=== PATIENT | male | born 1940 | race Caucasian/White ===

== ENCOUNTER 2018-04-18 12:44 | Observation (INO) ==
--- NOTE | 2018-04-18 13:13 | Emergency Department Note ---
Disposition Clinical Impression: Breakthrough seizure Pneumonia Qualifiers: Laterality: right Lung location: lower lobe of lung Disposition: Admitted As Inpatient Condition: Fair Altered Mental Status HPI - General Stated Complaint: Seizures,Dizziness,AMS Time Seen by Provider: 04/18/18 12:48 Source: patient, family Mode of arrival: private vehicle Limitations: altered mental status - History of Present Illness HPI Narrative: Dereck is a 78 YO M with a PMH significant for epilepsy (on dilantin, phenobarb ital, Keppra, followed by Dr. Bragg), HTN, CAD s/p stent and remote history of CVA who presents with altered mental status and confusion. History comes from Dereck and his , both of whom are rather poor historians. Dereck's last known normal baseline status was at 1100 when his went to bed. When she awoke at 0630 this morning she found Dereck in the kitchen staring in the distance having an apparent absence seizure. This behavior is consistent with previous absence seizures he has had in the past. She brought him to Dr. Bragg's office for further evaluation. While in transit and at the neurologist's office Dereck underwent 3-4 further seizure episodes. Following completion of these episodes Dereck entered a confused state where he was disoriented and unable to perform simple tasks such as tying his shoes. Dr. Bragg assesed Dereck and was concerned that his breakthrough seizures may be secondary to an underlying infectious process, and directed him to [facility] ED for further evaluation and treatment. Of note, 5 days prior to onset of his his symptoms Dereck fell when his knees buckled and "scraped his head", after which time he had a fairly constant headache. This headache persisted until this morning. His last seizure was approximately 1 month prior, at which time he was evaluated and found to have a low Dilantin level, which was adjusted accordingly. Dereck denies F/C/NS, N/V/D, CP/SOB/ABD pain. complaint: altered mental status, confusion Onset (ago): hour(s) Time: 06:30 Timing confirmed by: spouse Pain Severity: none Context: history of similar presentation, seizure disorder Associated symptoms: Reports: headaches. Denies: chest pain, cough, diaphoresis, fever - Related Data Home Medications Medication Instructions Recorded Confirmed Clopidogrel 10/15/16 Dilantin 10/15/16 Furosemide 10/15/16 LevETIRAcetam 10/15/16 Metoprolol Tartrate 10/15/16 Multivitamin with Iron 10/15/16 Xunvpsps-Fkpnojwxv-Jd Ear Soln 10/15/16 PHENobarbital 10/15/16 10/15/16 Tamsulosin HCl 10/15/16 Previous Rx's Medication Instructions Recorded Acetaminophen [Tylenol] 500 mg PO Q6HR PRN #20 tablet 10/15/16 Amoxicillin/Clavulanate [Augmentin] 875 mg PO BID #20 tablet 10/15/16 Ciprofloxacin/Dex *EAR* Susp 4 drop LEFT EAR BID #1 bottle 10/15/16 [Ciprodex *EAR* Susp] Fluticasone Propionate Nasal 2 spray NS DAILY #1 bottle 01/02/18 [Flonase] Loratadine [Claritin] 10 mg PO DAILY #14 tablet 01/02/18 Ciprofloxacin HCl [Cipro] 500 mg PO BID #20 tablet 01/15/18 Allergies Allergy/AdvReac Type Severity Reaction Status Date / Time No Known Allergies Allergy Verified 01/02/18 11:41 Constitutional: Denies: fever, chills, weakness Eyes: Denies: eye pain, vision change ENT ED: Denies: ear pain Cardiovascular: Denies: chest pain, palpitations Respiratory: Denies: cough, dyspnea, wheezes Gastrointestinal: Denies: abdominal pain, nausea, vomiting Genitourinary: Denies: urgency, dysuria Integumentary: Denies: rash, abrasion Neurological: Reports: headache, numbness (describes decreased sensation in bilateral toes for the last several months). Denies: weakness Psychiatric: Denies: anxiety Past Medical History - Past Medical History Medical history: Reports: hyperlipidemia, hypertension, myocardial infarction, seizures Psychiatric history: Reports: no psych history - Social History Smoking Status: Never smoker Smokeless Tobacco Status: No Alcohol use: Reports: none Drug use: Reports: none Physical Exam - General Limitations: altered mental status General appearance: alert, in no apparent distress - Head Head exam: normocephalic, other (healing superficial abrasion on forehead) - Eye Eye exam: Present: normal appearance, PERRL, EOMI. Absent: nystagmus - ENT ENT exam: normal exam, normal oropharynx, mucous membranes moist - Neck Neck exam: Present: normal inspection - Chest Chest inspection: Present: normal inspection, symmetric chest wall rise - Respiratory Respiratory exam: Present: normal lung sounds bilaterally. Absent: respiratory distress, accessory muscle use - Cardiovascular Cardiovascular exam: Present: regular rate. Absent: tachycardia, systolic murmur, rubs - Abdominal Exam Abdominal exam: Present: soft, Non-Tender. Absent: distention, guarding, rebound, hyperactive bowel sounds - Extremities Exam Extremities exam: Present: normal inspection, normal capillary refill, pedal edema. Absent: joint swelling - Neurological Exam Neurological exam: Present: alert. Absent: oriented X3 (Patient thinks it is the s, JFK is the president, and he is at a different hospital than [facility]. this is a departure from his baseline status. ) - Psychiatric Psychiatric exam: Present: normal affect, normal mood - Skin Skin exam: Present: warm, dry, intact Course Course Narrative: Will obtain anticonvulsant levels and initial laboratory studies to assess for infectious processes. Dereck is currently afebrile with stable vital signs. Dereck's states that Dr. Bragg was anticipating admission. Will contact him and discuss further management. NIHSS was performed as a precaution to rule out unrecognized focal neurologic deficit. Dereck had an NIH score of 2, with only positives being 2/2 disorientation, confusion. Low concern for new onset CVA at this time. - Reevaluation(s) Reevaluation #1: Workup reveals consolidation in the RLL on CXR, likely community acquired pneumonia. This is most likely the cause of Dereck's breakthrough seizures. Will start him on IV antibiotics and admit for inpatient monitoring and treatment. Vital Signs Temperature 98.0 F 04/18/18 12:46 Pulse Rate 64 04/18/18 12:46 Respiratory Rate 18 04/18/18 12:46 Blood Pressure 133/79 04/18/18 12:46 O2 Sat by Pulse Oximetry 97 04/18/18 12:46 Temperature 98.0 F 04/18/18 12:57 Pulse Rate 62 04/18/18 15:45 Respiratory Rate 18 04/18/18 15:45 Blood Pressure 135/83 04/18/18 15:45 O2 Sat by Pulse Oximetry 93 04/18/18 15:45 Oxygen Delivery Oxygen Delivery Room Air Altered Mental Status - Lab Data Result diagrams: 04/18/18 13:10 04/18/18 13:10 Lab Results 04/18/18 04/18/1818 Range/Units 13:10 13:10 13:51 WBC 7.3 (4.3-11.1) K/mcL RBC 4.73 (4.19-5.50) M/mcL Hgb 13.9 (12.9-16.9) g/dL Hct 40.5 (37.5-50.1) % MCV 85.6 (83.0-100.0) fL MCH 29.4 (28.0-33.3) pg MCHC 34.3 (31.6-35.5) g/dL RDW 13.0 (11.5-14.5) % Plt Count 199 (140-400) K/mcL MPV 10.3 (9.4-12.4) fL Immature Gran % 0.3 (0-4) % Seg Neutrophils % 54.2 % Lymphocytes % 23.4 % Monocytes % 16.9 % Eosinophils % 4.4 % Basophils % 0.8 % Neutrophils # 3.9 (1.6-8.9) K/mcL Lymphocytes # 1.7 (0.6-4.6) K/mcL Monocytes # 1.2 (0.0-1.3) K/mcL Eosinophils # 0.3 (0.0-0.6) K/mcL Basophils # 0.1 (0.0-0.2) K/mcL Sodium 141 (136-145) mEq/L Potassium 4.1 (3.5-5.1) mEq/L Chloride 103 (98-107) mEq/L Carbon Dioxide 30 H (23-29) mEq/L BUN 11 (8-23) mg/dL Creatinine 0.73 (0.70-1.30) mg/dL Est GFR ( Amer) > 60 (> 60) Est GFR (Non-Af Amer) > 60 (> 60) BUN/Creatinine Ratio 15 (6-26) Glucose 86 (70-105) mg/dL Calculated Osmolality 291 (280-300) Calcium 9.0 (8.6-10.3) mg/dL Total Bilirubin 0.3 (0.3-1.0) mg/dL Direct Bilirubin 0.1 (0.0-0.2) mg/dL Indirect Bilirubin 0.2 (0.0-1.2) mg/dL AST 19 (13-39) Units/L ALT 17 (7-52) Units/L Alkaline Phosphatase 58 (34-104) Units/L Ammonia 63 H (16-53) mcmol/L Troponin I < 0.03 (< 0.04) ng/mL Serum Total Protein 7.5 (6.4-8.9) g/dL Albumin 4.2 (3.5-5.7) g/dL Globulin 3.3 (2.4-3.5) g/dL Albumin/Globulin Ratio 1.3 (1.1-2.2) TSH 2.448 (0.340-5.600) mcIU/mL Urine Color (Yellow) Urine Clarity (Clear) Urine pH (5.0-8.0) pH Units Ur Specific [place] (1.010-1.025) Urine Protein (Neg-Trace) mg/dL Urine Glucose (UA) (Normal) mg/dL Urine Ketones (Negative) mg/dL Urine Blood (Negative) Urine Nitrite (Negative) Urine Bilirubin (Negative) Urine Urobilinogen (Normal) mg/dL Ur Leukocyte Esterase (Negative) Ur Culture Indicated? (NO) Urine Opiates Screen (Hnzbmb=810) ng/mL Ur Barbiturates Screen (Cpxfab=882) ng/mL Phenytoin 17.9 (10.0-20.0) mcg/mL Ur Phencyclidine Scrn (Cutoff=25) ng/mL Ur Amphetamines Screen (Vfgzcb=2501) ng/mL Phenobarbital 24 (15-40) mcg/mL U Benzodiazepines Scrn (Arkqhi=483) ng/mL Urine Cocaine Screen (Cutoff= 300) ng/mL U Marijuana (THC) Screen (Cutoff = 50) ng/mL Ur Drug Screen Interp Ethyl Alcohol < 10 (Less than 10) mg/dL 04/18/18 04/18/18 Range/Units 14:02 14:02 WBC (4.3-11.1) K/mcL RBC (4.19-5.50) M/mcL Hgb (12.9-16.9) g/dL Hct (37.5-50.1) % MCV (83.0-100.0) fL MCH (28.0-33.3) pg MCHC (31.6-35.5) g/dL RDW (11.5-14.5) % Plt Count (140-400) K/mcL MPV (9.4-12.4) fL Immature Gran % (0-4) % Seg Neutrophils % % Lymphocytes % % Monocytes % % Eosinophils % % Basophils % % Neutrophils # (1.6-8.9) K/mcL Lymphocytes # (0.6-4.6) K/mcL Monocytes # (0.0-1.3) K/mcL Eosinophils # (0.0-0.6) K/mcL Basophils # (0.0-0.2) K/mcL Sodium (136-145) mEq/L Potassium (3.5-5.1) mEq/L Chloride (98-107) mEq/L Carbon Dioxide (23-29) mEq/L BUN (8-23) mg/dL Creatinine (0.70-1.30) mg/dL Est GFR ( Amer) (> 60) Est GFR (Non-Af Amer) (> 60) BUN/Creatinine Ratio (6-26) Glucose (70-105) mg/dL Calculated Osmolality (280-300) Calcium (8.6-10.3) mg/dL Total Bilirubin (0.3-1.0) mg/dL Direct Bilirubin (0.0-0.2) mg/dL Indirect Bilirubin (0.0-1.2) mg/dL AST (13-39) Units/L ALT (7-52) Units/L Alkaline Phosphatase (34-104) Units/L Ammonia (16-53) mcmol/L Troponin I (< 0.04) ng/mL Serum Total Protein (6.4-8.9) g/dL Albumin (3.5-5.7) g/dL Globulin (2.4-3.5) g/dL Albumin/Globulin Ratio (1.1-2.2) TSH (0.340-5.600) mcIU/mL Urine Color Yellow (Yellow) Urine Clarity Clear (Clear) Urine pH 7.5 (5.0-8.0) pH Units Ur Specific [place] < 1.005 L (1.010-1.025) Urine Protein Negative (Neg-Trace) mg/dL Urine Glucose (UA) Normal (Normal) mg/dL Urine Ketones Negative (Negative) mg/dL Urine Blood Negative (Negative) Urine Nitrite Negative (Negative) Urine Bilirubin Negative (Negative) Urine Urobilinogen Normal (Normal) mg/dL Ur Leukocyte Esterase Negative (Negative) Ur Culture Indicated? NO (NO) Urine Opiates Screen Negative (Slkoga=724) ng/mL Ur Barbiturates Screen Positive H (Oadkco=982) ng/mL Phenytoin (10.0-20.0) mcg/mL Ur Phencyclidine Scrn Negative (Cutoff=25) ng/mL Ur Amphetamines Screen Negative (Jclcjl=0538) ng/mL Phenobarbital (15-40) mcg/mL U Benzodiazepines Scrn Negative ([place]=314) ng/mL Urine Cocaine Screen Negative (Cutoff= 300) ng/mL U Marijuana (THC) Screen Negative (Cutoff = 50) ng/mL Ur Drug Screen Interp See Below Ethyl Alcohol (Less than 10) mg/dL - EKG Data EKG attestation: Yes I reviewed and interpreted this EKG. EKG shows normal: sinus rhythm Rate: normal Rhythm: NSR, PVC's [place]/QRS: normal Heart block present: 1st Degree (borderline MA interval, 204ms) Interpretation: no acute changes (mildly prolonged MA as compared to previous study. No findings concerning for significant block, arrhythmia or ischemia. ) TPA Checklist - LKW: 3-4.5 hrs Add. Warnings/Precautions Patient/family understanding: The patient/family members have been counseled and understood the risk, benefit, and alternatives of treatment.
--- NOTE | 2018-04-18 13:36 | Emergency Department Note ---
Disposition Clinical Impression: Breakthrough seizure, Pneumonia Disposition: Admitted As Inpatient General Adult [facility] Chief complaint: ED Altered Mental Status Stated complaint: Seizures,Dizziness,AMS Time Seen by Provider: 04/18/18 12:48 Source: patient, family Mode of arrival: private vehicle Limitations: altered mental status - History of Present Illness Pain Scale: 0 - Related Data Home Medications Medication Instructions Recorded Confirmed Clopidogrel 10/15/16 Dilantin 10/15/16 Furosemide 10/15/16 LevETIRAcetam 10/15/16 Metoprolol Tartrate 10/15/16 Multivitamin with Iron 10/15/16 Edjunyal-Jghoaxwqn-Aa Ear Soln 10/15/16 PHENobarbital 10/15/16 10/15/16 Tamsulosin HCl 10/15/16 Previous Rx's Medication Instructions Recorded Acetaminophen [Tylenol] 500 mg PO Q6HR PRN #20 tablet 10/15/16 Amoxicillin/Clavulanate [Augmentin] 875 mg PO BID #20 tablet 10/15/16 Ciprofloxacin/Dex *EAR* Susp 4 drop LEFT EAR BID #1 bottle 10/15/16 [Ciprodex *EAR* Susp] Fluticasone Propionate Nasal 2 spray NS DAILY #1 bottle 01/02/18 [Flonase] Loratadine [Claritin] 10 mg PO DAILY #14 tablet 01/02/18 Ciprofloxacin HCl [Cipro] 500 mg PO BID #20 tablet 01/15/18 Allergies Allergy/AdvReac Type Severity Reaction Status Date / Time No Known Allergies Allergy Verified 01/02/18 11:41 Constitutional: Denies: fever, chills, weakness Eyes: Denies: eye pain, vision change ENT ED: Denies: ear pain Cardiovascular: Denies: chest pain, palpitations Respiratory: Denies: cough, dyspnea, wheezes Gastrointestinal: Denies: abdominal pain, nausea, vomiting Genitourinary: Denies: urgency, dysuria Integumentary: Denies: rash, abrasion Neurological: Reports: headache, numbness (describes decreased sensation in bilateral toes for the last several months). Denies: weakness Psychiatric: Denies: anxiety Past Medical History - Past Medical History Medical history: Reports: hyperlipidemia, hypertension, myocardial infarction, s eizures Psychiatric history: Reports: no psych history - Social History Smoking Status: Never smoker Smokeless Tobacco Status: No Alcohol use: Reports: none Drug use: Reports: none Physical Exam - General Limitations: altered mental status General appearance: alert, in no apparent distress Course Vital Signs Temperature 98.0 F 04/18/18 12:46 Pulse Rate 64 04/18/18 12:46 Respiratory Rate 18 04/18/18 12:46 Blood Pressure 133/79 04/18/18 12:46 O2 Sat by Pulse Oximetry 97 04/18/18 12:46 Temperature 98.0 F 04/18/18 12:57 Pulse Rate 62 04/18/18 15:45 Respiratory Rate 18 04/18/18 15:45 Blood Pressure 135/83 04/18/18 15:45 O2 Sat by Pulse Oximetry 93 04/18/18 15:45 Oxygen Delivery Oxygen Delivery Room Air Medical Decision Making - Lab Data Result diagrams: 04/18/18 13:10 04/18/18 13:10 Lab Results 04/18/18 04/18/18 04/18/18 Range/Units 13:10 13:10 13:51 WBC 7.3 (4.3-11.1) K/mcL RBC 4.73 (4.19-5.50) M/mcL Hgb 13.9 (12.9-16.9) g/dL Hct 40.5 (37.5-50.1) % MCV 85.6 (83.0-100.0) fL MCH 29.4 (28.0-33.3) pg MCHC 34.3 (31.6-35.5) g/dL RDW 13.0 (11.5-14.5) % Plt Count 199 (140-400) K/mcL MPV 10.3 (9.4-12.4) fL Immature Gran % 0.3 (0-4) % Seg Neutrophils % 54.2 % Lymphocytes % 23.4 % Monocytes % 16.9 % Eosinophils % 4.4 % Basophils % 0.8 % Neutrophils # 3.9 (1.6-8.9) K/mcL Lymphocytes # 1.7 (0.6-4.6) K/mcL Monocytes # 1.2 (0.0-1.3) K/mcL Eosinophils # 0.3 (0.0-0.6) K/mcL Basophils # 0.1 (0.0-0.2) K/mcL Sodium 141 (136-145) mEq/L Potassium 4.1 (3.5-5.1) mEq/L Chloride 103 (98-107) mEq/L Carbon Dioxide 30 H (23-29) mEq/L BUN 11 (8-23) mg/dL Creatinine 0.73 (0.70-1.30) mg/dL Est GFR ( Amer) > 60 (> 60) Est GFR (Non-Af Amer) > 60 (> 60) BUN/Creatinine Ratio 15 (6-26) Glucose 86 (70-105) mg/dL Calculated Osmolality 291 (280-300) Calcium 9.0 (8.6-10.3) mg/dL Total Bilirubin 0.3 (0.3-1.0) mg/dL Direct Bilirubin 0.1 (0.0-0.2) mg/dL Indirect Bilirubin 0.2 (0.0-1.2) mg/dL AST 19 (13-39) Units/L ALT 17 (7-52) Units/L Alkaline Phosphatase 58 (34-104) Units/L Ammonia 63 H (16-53) mcmol/L Troponin I < 0.03 (< 0.04) ng/mL Serum Total Protein 7.5 (6.4-8.9) g/dL Albumin 4.2 (3.5-5.7) g/dL Globulin 3.3 (2.4-3.5) g/dL Albumin/Globulin Ratio 1.3 (1.1-2.2) TSH 2.448 (0.340-5.600) mcIU/mL Urine Color (Yellow) Urine Clarity (Clear) Urine pH (5.0-8.0) pH Units Ur Specific [place] (1.010-1.025) Urine Protein (Neg-Trace) mg/dL Urine Glucose (UA) (Normal) mg/dL Urine Ketones (Negative) mg/dL Urine Blood (Negative) Urine Nitrite (Negative) Urine Bilirubin (Negative) Urine Urobilinogen (Normal) mg/dL Ur Leukocyte Esterase (Negative) Ur Culture Indicated? (NO) Urine Opiates Screen (Nvhmdu=806) ng/mL Ur Barbiturates Screen (Sxlccy=152) ng/mL Phenytoin 17.9 (10.0-20.0) mcg/mL Ur Phencyclidine Scrn (Cutoff=25) ng/mL Ur Amphetamines Screen (Asizio=8727) ng/mL Phenobarbital 24 (15-40) mcg/mL U Benzodiazepines Scrn (Apzkol=681) ng/mL Urine Cocaine Screen (Cutoff= 300) ng/mL U Marijuana (THC) Screen (Cutoff = 50) ng/mL Ur Drug Screen Interp Ethyl Alcohol < 10 (Less than 10) mg/dL 04/18/18 04/18/18 Range/Units 14:02 14:02 WBC (4.3-11.1) K/mcL RBC (4.19-5.50) M/mcL Hgb (12.9-16.9) g/dL Hct (37.5-50.1) % MCV (83.0-100.0) fL MCH (28.0-33.3) pg MCHC (31.6-35.5) g/dL RDW (11.5-14.5) % Plt Count (140-400) K/mcL MPV (9.4-12.4) fL Immature Gran % (0-4) % Seg Neutrophils % % Lymphocytes % % Monocytes % % Eosinophils % % Basophils % % Neutrophils # (1.6-8.9) K/mcL Lymphocytes # (0.6-4.6) K/mcL Monocytes # (0.0-1.3) K/mcL Eosinophils # (0.0-0.6) K/mcL Basophils # (0.0-0.2) K/mcL Sodium (136-145) mEq/L Potassium (3.5-5.1) mEq/L Chloride (98-107) mEq/L Carbon Dioxide (23-29) mEq/L BUN (8-23) mg/dL Creatinine (0.70-1.30) mg/dL Est GFR ( Amer) (> 60) Est GFR (Non-Af Amer) (> 60) BUN/Creatinine Ratio (6-26) Glucose (70-105) mg/dL Calculated Osmolality (280-300) Calcium (8.6-10.3) mg/dL Total Bilirubin (0.3-1.0) mg/dL Direct Bilirubin (0.0-0.2) mg/dL Indirect Bilirubin (0.0-1.2) mg/dL AST (13-39) Units/L ALT (7-52) Units/L Alkaline Phosphatase (34-104) Units/L Ammonia (16-53) mcmol/L Troponin I (< 0.04) ng/mL Serum Total Protein (6.4-8.9) g/dL Albumin (3.5-5.7) g/dL Globulin (2.4-3.5) g/dL Albumin/Globulin Ratio (1.1-2.2) TSH (0.340-5.600) mcIU/mL Urine Color Yellow (Yellow) Urine Clarity Clear (Clear) Urine pH 7.5 (5.0-8.0) pH Units Ur Specific [place] < 1.005 L (1.010-1.025) Urine Protein Negative (Neg-Trace) mg/dL Urine Glucose (UA) Normal (Normal) mg/dL Urine Ketones Negative (Negative) mg/dL Urine Blood Negative (Negative) Urine Nitrite Negative (Negative) Urine Bilirubin Negative (Negative) Urine Urobilinogen Normal (Normal) mg/dL Ur Leukocyte Esterase Negative (Negative) Ur Culture Indicated? NO (NO) Urine Opiates Screen Negative (Xglkla=560) ng/mL Ur Barbiturates Screen Positive H (Gktffb=630) ng/mL Phenytoin (10.0-20.0) mcg/mL Ur Phencyclidine Scrn Negative (Cutoff=25) ng/mL Ur Amphetamines Screen Negative (Cylyoa=3215) ng/mL Phenobarbital (15-40) mcg/mL U Benzodiazepines Scrn Negative (Wwpstt=981) ng/mL Urine Cocaine Screen Negative (Cutoff= 300) ng/mL U Marijuana (THC) Screen Negative (Cutoff = 50) ng/mL Ur Drug Screen Interp See Below Ethyl Alcohol (Less than 10) mg/dL Attestation Statement - Attestation Attestation: I examined this patient and my medical decision-making was reviewed with the Resident Physician. I agree with the documented findings, disposition and treatment plan as described except to the extent set forth below. Patient presents to the ED with seizure activity. states he had an episode today where he was staring and not responding. This is consistent with his history of absance seizures. He also has a history of tonic clonic seizures. He is currently on Keppra, Dilantin, and phenobarbital. She took him to see Dr. Bragg. He had 2 more episodes in the waiting room. Dr. Bragg was concern for possible infectious processes send him to the ED. states he has been "sick." No vomiting or diarrhea. No cough. No congestion. Is a complaining of his feet hurting. She states is also been cold. On exam he is awake and alert. He is oriented to self. Thinks he is at [facility]. Moving all extremities symmetrically. Speech clear. Plan. Altered mental status workup. Head CT as he did have a fall 5 days ago and takes Plavix. Patient's workup is unremarkable. His antiepileptics a therapeutic. Head CT is unremarkable. He is admitted to medicine. X-ray showed a possible infiltrate, however he is not coughing. Has a normal white blood cell count. And is afebrile. Chest X-Ray 04/18/18 13:34 IMPRESSION: Right lower lobe atelectatic and/or consolidative changes. Cardiomegaly and increased congestion. D/ / 04/18/2018 13:51:20 Allison Eisenberg MD / earnold Interpreting Provider: Allison Eisenberg MD Head CT 04/18/18 13:34 IMPRESSION: No acute intracranial abnormality. Mild cerebral atrophy. D/ / Faisal Ruiz MD / Faisal Ruiz MD Interpreting Provider: Faisal Ruiz MD
--- NOTE | 2018-04-18 13:50 | Emergency Department Note ---
Disposition Clinical Impression: Breakthrough seizure Pneumonia Qualifiers: Laterality: right Lung location: lower lobe of lung Disposition: Admitted As Inpatient Condition: Fair Time of Disposition: 16:01 General Adult HPI - General Chief complaint: ED Altered Mental Status Stated complaint: Seizures,Dizziness,AMS Time Seen by Provider: 04/18/18 12:48 Source: patient, family Mode of arrival: private vehicle Limitations: altered mental status Nursing Notes Reviewed: Yes Vital Signs Reviewed: Yes - History of Present Illness HPI Narrative: I examined this patient and my medical decision-making was reviewed with the Resident Physician Rod. I agree with the documented history of present illness. Please see my note for physical exam, medical decision making, and disposition. ROS: Positive: Confusion, multiple absence seizure's. Also chills, increased sleepiness Negative: Measured fever, cough, shortness of breath, chest pain, palpitations, abdominal pain, diarrhea, constipation, dysuria, headache Pain Scale: 0 - Related Data Home Medications Medication Instructions Recorded Confirmed Clopidogrel 10/15/16 Dilantin 10/15/16 Furosemide 10/15/16 LevETIRAcetam 10/15/16 Metoprolol Tartrate 10/15/16 Multivitamin with Iron 10/15/16 Cinnubsd-Apalohybq-Dk Ear Soln 10/15/16 PHENobarbital 10/15/16 10/15/16 Tamsulosin HCl 10/15/16 Previous Rx's Medication Instructions Recorded Acetaminophen [Tylenol] 500 mg PO Q6HR PRN #20 tablet 10/15/16 Amoxicillin/Clavulanate [Augmentin] 875 mg PO BID #20 tablet 10/15/16 Ciprofloxacin/Dex *EAR* Susp 4 drop LEFT EAR BID #1 bottle 10/15/16 [Ciprodex *EAR* Susp] Fluticasone Propionate Nasal 2 spray NS DAILY #1 bottle 01/02/18 [Flonase] Loratadine [Claritin] 10 mg PO DAILY #14 tablet 01/02/18 Ciprofloxacin HCl [Cipro] 500 mg PO BID #20 tablet 01/15/18 Allergies Allergy/AdvReac Type Severity Reaction Status Date / Time No Known Allergies Allergy Verified 01/02/18 11:41 All systems ED: reviewed and negative except as stated. Review of Systems: As Per HPI Constitutional: Denies: fever, chills, weakness Eyes: Denies: eye pain, vision change ENT ED: Denies: ear pain Cardiovascular: Denies: chest pain, palpitations Respiratory: Denies: cough, dyspnea, wheezes Gastrointestinal: Denies: abdominal pain, nausea, vomiting Genitourinary: Denies: urgency, dysuria Integumentary: Denies: rash, abrasion Neurological: Reports: headache, numbness (describes decreased sensation in bilateral toes for the last several months). Denies: weakness Psychiatric: Denies: anxiety Past Medical History - Past Medical History Medical history: Reports: hyperlipidemia, hypertension, myocardial infarction, seizures Psychiatric history: Reports: no psych history - Social History Smoking Status: Never smoker Smokeless Tobacco Status: No Alcohol use: Reports: none Drug use: Reports: none Physical Exam Vital Signs Reviewed General: Patient is alert, oriented, and in no acute distress. Head: atraumatic, normocephalic Eye: normal appearance, PERRL, EOMI, no scleral icterus, no conjunctival injection ENT: mucous membranes moist, normal external ear exam Neck: normal inspection, trachea midline, full ROM Chest: normal inspection, symmetric chest rise Respiratory: Good respiratory effort. Bilateral breath sounds are clear without wheezing, crackles, or rhonchi. Cardiovascular: Regular rate and rhythm. No clicks, rubs, gallops, or murmors. Normal heart sounds. Abdomen: Bowel sounds present normoactive x-4 quadrants. Abdomen is soft, nondistended, and nontender. No guarding or rebound. Musculoskeletal: Spontaneously moving all extremities. Skin: warm, dry, intact. Neuro: GCS 15. Alert and oriented x3. Sensation light touch intact and equal bilateral upper and lower extremity his. Strength 5/5 and equal bilateral lower extremity is. No limb drift. No facial asymmetry or slurring of speech. Patient is answering all questions appropriately and briskly. Psych: Patient's affect is appropriate for situation. - General Limitations: altered mental status General appearance: alert, in no apparent distress Course Course Narrative: Patient presents with multiple absence seizures in the last 24 hours including at his neurologist's outpatient appointment today. His neurologist is concern ing for possible underlying infectious process. Patient's notes chills with no measured fever. Patient previously thought he was at the hospital and now believes he is at [facility]. Neurologically intact with exception confusion. EKG dated 04/18/2018 at 13:04 interpreted as sinus bradycardia with a rate of 59. Borderline first-degree AV block with ND 204, QRS 97, QTC 408. Nonspecific ST-T changes. Compared to previous EKG dated 06/20/2012 showing no acute ischemic changes or comparison. Serum hematology is unremarkable. Serum chemistries unremarkable. Urinalysis not concerning for UTI. Chest x-ray concerning for possible right lower lobe pneumonia. This to be community-acquired pneumonia given patient's presentation from home and lack of hospitalizations the last 90 days. We will begin azithromycin and Rocephin. 16:00 I discussed the patient with the admitting hospitalist, Dr. Nina, who agrees to accept the patient for continued evaluation monitoring. Chest X-Ray 04/18/18 13:34 IMPRESSION: Right lower lobe atelectatic and/or consolidative changes. Cardiomegaly and increased congestion. D/ / 04/18/2018 13:51:20 Allison Eisenberg MD / earnold Interpreting Provider: Allison Eisenberg MD Head CT 04/18/18 13:34 IMPRESSION: No acute intracranial abnormality. Mild cerebral atrophy. D/ / Faisal Ruiz MD / Faisal Ruiz MD Interpreting Provider: Faisal Ruiz MD Vital Signs Temperature 98.0 F 04/18/18 12:46 Pulse Rate 64 04/18/18 12:46 Respiratory Rate 18 04/18/18 12:46 Blood Pressure 133/79 04/18/18 12:46 O2 Sat by Pulse Oximetry 97 04/18/18 12:46 Temperature 98.0 F 04/18/18 12:57 Pulse Rate 62 04/18/18 15:45 Respiratory Rate 18 04/18/18 15:45 Blood Pressure 135/83 04/18/18 15:45 O2 Sat by Pulse Oximetry 93 04/18/18 15:45 Oxygen Delivery Oxygen Delivery Room Air Medical Decision Making - Lab Data Result diagrams: 04/18/18 13:10 04/18/18 13:10 Lab Results 11/28/18 11/28/18 11/28/18 Range/Units 13:10 13:10 13:51 WBC 7.3 (4.3-11.1) K/mcL RBC 4.73 (4.19-5.50) M/mcL Hgb 13.9 (12.9-16.9) g/dL Hct 40.5 (37.5-50.1) % MCV 85.6 (83.0-100.0) fL MCH 29.4 (28.0-33.3) pg MCHC 34.3 (31.6-35.5) g/dL RDW 13.0 (11.5-14.5) % Plt Count 199 (140-400) K/mcL MPV 10.3 (9.4-12.4) fL Immature Gran % 0.3 (0-4) % Seg Neutrophils % 54.2 % Lymphocytes % 23.4 % Monocytes % 16.9 % Eosinophils % 4.4 % Basophils % 0.8 % Neutrophils # 3.9 (1.6-8.9) K/mcL Lymphocytes # 1.7 (0.6-4.6) K/mcL Monocytes # 1.2 (0.0-1.3) K/mcL Eosinophils # 0.3 (0.0-0.6) K/mcL Basophils # 0.1 (0.0-0.2) K/mcL Sodium 141 (136-145) mEq/L Potassium 4.1 (3.5-5.1) mEq/L Chloride 103 (98-107) mEq/L Carbon Dioxide 30 H (23-29) mEq/L BUN 11 (8-23) mg/dL Creatinine 0.73 (0.70-1.30) mg/dL Est GFR ( Amer) > 60 (> 60) Est GFR (Non-Af Amer) > 60 (> 60) BUN/Creatinine Ratio 15 (6-26) Glucose 86 (70-105) mg/dL Calculated Osmolality 291 (280-300) Calcium 9.0 (8.6-10.3) mg/dL Total Bilirubin 0.3 (0.3-1.0) mg/dL Direct Bilirubin 0.1 (0.0-0.2) mg/dL Indirect Bilirubin 0.2 (0.0-1.2) mg/dL AST 19 (13-39) Units/L ALT 17 (7-52) Units/L Alkaline Phosphatase 58 (34-104) Units/L Ammonia 63 H (16-53) mcmol/L Troponin I < 0.03 (< 0.04) ng/mL Serum Total Protein 7.5 (6.4-8.9) g/dL Albumin 4.2 (3.5-5.7) g/dL Globulin 3.3 (2.4-3.5) g/dL Albumin/Globulin Ratio 1.3 (1.1-2.2) Urine Color (Yellow) Urine Clarity (Clear) Urine pH (5.0-8.0) pH Units Ur Specific [place] (1.010-1.025) Urine Protein (Neg-Trace) mg/dL Urine Glucose (UA) (Normal) mg/dL Urine Ketones (Negative) mg/dL Urine Blood (Negative) Urine Nitrite (Negative) Urine Bilirubin (Negative) Urine Urobilinogen (Normal) mg/dL Ur Leukocyte Esterase (Negative) Ur Culture Indicated? (NO) Urine Opiates Screen (Thoeoo=131) ng/mL Ur Barbiturates Screen (Epyfmp=162) ng/mL Phenytoin 17.9 (10.0-20.0) mcg/mL Ur Phencyclidine Scrn (Cutoff=25) ng/mL Ur Amphetamines Screen (Zkcpym=3166) ng/mL Phenobarbital 24 (15-40) mcg/mL U Benzodiazepines Scrn (Orszqy=615) ng/mL Urine Cocaine Screen (Cutoff= 300) ng/mL U Marijuana (THC) Screen (Cutoff = 50) ng/mL Ur Drug Screen Interp 04/18/18 04/18/18 Range/Units 14:02 14:02 WBC (4.3-11.1) K/mcL RBC (4.19-5.50) M/mcL Hgb (12.9-16.9) g/dL Hct (37.5-50.1) % MCV (83.0-100.0) fL MCH (28.0-33.3) pg MCHC (31.6-35.5) g/dL RDW (11.5-14.5) % Plt Count (140-400) K/mcL MPV (9.4-12.4) fL Immature Gran % (0-4) % Seg Neutrophils % % Lymphocytes % % Monocytes % % Eosinophils % % Basophils % % Neutrophils # (1.6-8.9) K/mcL Lymphocytes # (0.6-4.6) K/mcL Monocytes # (0.0-1.3) K/mcL Eosinophils # (0.0-0.6) K/mcL Basophils # (0.0-0.2) K/mcL Sodium (136-145) mEq/L Potassium (3.5-5.1) mEq/L Chloride (98-107) mEq/L Carbon Dioxide (23-29) mEq/L BUN (8-23) mg/dL Creatinine (0.70-1.30) mg/dL Est GFR ( Amer) (> 60) Est GFR (Non-Af Amer) (> 60) BUN/Creatinine Ratio (6-26) Glucose (70-105) mg/dL Calculated Osmolality (280-300) Calcium (8.6-10.3) mg/dL Total Bilirubin (0.3-1.0) mg/dL Direct Bilirubin (0.0-0.2) mg/dL Indirect Bilirubin (0.0-1.2) mg/dL AST (13-39) Units/L ALT (7-52) Units/L Alkaline Phosphatase (34-104) Units/L Ammonia (16-53) mcmol/L Troponin I (< 0.04) ng/mL Serum Total Protein (6.4-8.9) g/dL Albumin (3.5-5.7) g/dL Globulin (2.4-3.5) g/dL Albumin/Globulin Ratio (1.1-2.2) Urine Color Yellow (Yellow) Urine Clarity Clear (Clear) Urine pH 7.5 (5.0-8.0) pH Units Ur Specific [place] < 1.005 L (1.010-1.025) Urine Protein Negative (Neg-Trace) mg/dL Urine Glucose (UA) Normal (Normal) mg/dL Urine Ketones Negative (Negative) mg/dL Urine Blood Negative (Negative) Urine Nitrite Negative (Negative) Urine Bilirubin Negative (Negative) Urine Urobilinogen Normal (Normal) mg/dL Ur Leukocyte Esterase Negative (Negative) Ur Culture Indicated? NO (NO) Urine Opiates Screen Negative (Iuwtwm=865) ng/mL Ur Barbiturates Screen Positive H (Ccwpxx=978) ng/mL Phenytoin (10.0-20.0) mcg/mL Ur Phencyclidine Scrn Negative (Cutoff=25) ng/mL Ur Amphetamines Screen Negative (Vbsjdx=8256) ng/mL Phenobarbital (15-40) mcg/mL U Benzodiazepines Scrn Negative (Wnraup=024) ng/mL Urine Cocaine Screen Negative (Cutoff= 300) ng/mL U Marijuana (THC) Screen Negative (Cutoff = 50) ng/mL Ur Drug Screen Interp See Below
[2018-04-18 14:03] LABS: Basophils # 0.1 K/mcL (0.0-0.2); Basophils % 0.8 %; Eosinophils # 0.3 K/mcL (0.0-0.6); Eosinophils % 4.4 %; Hematocrit 40.5 % (37.5-50.1); Hemoglobin 13.9 g/dL (12.9-16.9); Immature Granulocytes % 0.3 % (0-4); Lymphocytes # 1.7 K/mcL (0.6-4.6); Lymphocytes % 23.4 %; Mean Corpuscular HGB Conc 34.3 g/dL (31.6-35.5); Mean Corpuscular Hemoglobin 29.4 pg (28.0-33.3); Mean Corpuscular Volume 85.6 fL (83.0-100.0); Mean Platelet Volume 10.3 fL (9.4-12.4); Monocytes # 1.2 K/mcL (0.0-1.3); Monocytes % 16.9 %; Neutrophils # 3.9 K/mcL (1.6-8.9); Platelet Count 199 K/mcL (140-400); Red Blood Count 4.73 M/mcL (4.19-5.50); Segmented Neutrophils % 54.2 %
[2018-04-18 14:23] LABS: Troponin I < 0.03 ng/mL (< 0.04)
[2018-04-18 14:23] LABS: Bilirubin,Urine Negative (Negative); Blood,Urine Negative (Negative); Clarity,Urine Clear (Clear); Color,Urine Yellow (Yellow); Glucose,Urine (UA) Normal (Normal); Ketones,Urine Negative (Negative); Leukocyte Esterase,Urine Negative (Negative); Nitrite,Urine Negative (Negative); PH,Urine 7.5 pH Units (5.0-8.0); Protein,Urine Negative (Neg-Trace); Specific Gravity,Urine < 1.005 (1.010-1.025); Urobilinogen,Urine Normal (Normal)
[2018-04-18 14:53] LABS: Amphetamine Screen,Urine Negative ng/mL (Cutoff=1000); Barbiturate Screen,Urine Positive ng/mL (Cutoff=200); Benzodiazepines Screen,Urine Negative ng/mL (Cutoff=200); Cannabinoid Screen,Urine Negative ng/mL (Cutoff = 50); Cocaine Screen,Urine Negative ng/mL (Cutoff= 300); Opiate Screen,Urine Negative ng/mL (Cutoff=300); Phencyclidine Screen,Urine Negative ng/mL (Cutoff=25)
[2018-04-18 15:43] LABS: Alanine Aminotransferase 17 Units/L (7-52); Albumin 4.2 g/dL (3.5-5.7); Albumin/Globulin Ratio 1.3 (1.1-2.2); Alkaline Phosphatase 58 Units/L (34-104); Aspartate Amino Transferase 19 Units/L (13-39); BUN/Creatinine Ratio 15 (6-26); Bilirubin,Direct 0.1 mg/dL (0.0-0.2); Bilirubin,Indirect 0.2 mg/dL (0.0-1.2); Bilirubin,Total 0.3 mg/dL (0.3-1.0); Blood Urea Nitrogen 11 mg/dL (8-23); Carbon Dioxide 30 mEq/L (23-29); Chloride 103 mEq/L (98-107); Globulin 3.3 g/dL (2.4-3.5); Glucose 86 mg/dL (70-105); Osmolality,Calculated 291 (280-300); Phenytoin (Dilantin) 17.9 mcg/mL (10.0-20.0); Potassium 4.1 mEq/L (3.5-5.1); Sodium 141 mEq/L (136-145); Total Protein 7.5 g/dL (6.4-8.9); eGFR For Non-African Americans > 60 (> 60)
[2018-04-18] MEDS ORDERED: cefTRIAXone 1,000 MG in Water for inj. (sterile) 20 ML 10 ML IVP ONE (16:00)
[2018-04-18] MEDS ORDERED: Azithromycin 500 MG in D5% in Water 250 ML IVPB ONE (16:00)
[2018-04-18 16:04] LABS: Ethanol < 10 mg/dL (Less than 10); Thyroid Stimulating Hormone 2.448 mcIU/mL (0.340-5.600)
[2018-04-18] MEDS ORDERED: Naloxone 0.4 MG/ML INJ IVP PRN (17:07)
--- NOTE | 2018-04-18 17:14 | Internal Med History&Physical ---
Date of Encounter: 04/18/18 Time of Encounter: 17:12 Internal Medicine - H&P: HPI Chief complaint: absence seizure Admitted From: Home Plans for Post Hospital Care: Home History of present illness: Mr. Garcia is a 78 year old male with a PMH of CVA, HLD, HTN, DE with stents, absence and tonic-clonic seizures follows with [facility]. He presents to [facility] ED today with his spouse who states that this morning he was staring off into space and not responding. She reports that she spoke with his neurologist Dr. Bragg this afternoon to report concerns for possible infectious process tenderness in the ED. Per my review the patient reports that he has missed 2 doses of Keppra however, his spouse is unclear as to whether or not this is actually happened. Additionally, the spouse does admit agent did miss a dose of Dilantin yesterday evening as well. Increase at the medication noncompliance likely lead to that a seizure events. Patient currently does not have any headaches, vomiting, fevers, photophobia, lethargy, rashes, lesions, neck pain. He does however have some confusion, difficulty concentrating and generalized malaise. However I do believe that he may have an underlying component of dementia leading to confusion. Additionally, the patient denies chest pain, shortness of breath, abdominal pain, nausea, vomiting, diarrhea, unilateral extremity swelling and/or pain. Per my assessment in the ED the patient appears to be in a postictal phase with some confusion, he is oriented to self only. Additionally, he does appear to be drowsy. CT of the head was negative for acute intracranial abnormality. Chest x-ray completed in the ED showing findings concerning for possible right lower lobe pneumonia with atelectatic versus consolidative changes. We will admit and treat for pneumonia, check antiepileptic medication levels and consult neurology. Past Med Surg Social Fam HX - Past Medical History Medical history: hyperlipidemia, hypertension, myocardial infarction, seizures Psychiatric history: no psych history - Social History Smoking Status: Never smoker Smokeless Tobacco Status: No Alcohol use: none Drug use: none - Family History Mother Hx Family Endocrine Disorder: Yes (DM) Father Hx Family Cardiac Disorders: Yes (DE) Brother Hx Family Cardiac Disorders: Yes (DE) Hx Family Cancer: Yes Internal Medicine - H&P: Meds Allergy/AdvReac Type Severity Reaction Status Date / Time No Known Allergies Allergy Verified 01/02/18 11:41 All Systems PM: A 10-system review of systems was performed and is negative for pertinent findi ngs except as documented above in the HPI. - Constitutional Constitutional: chills, fatigue, falls, malaise, no excessive sweating, no fever(s), no lethargy, no night sweats, no weight gain, no weight loss - EENT Ears: no ear discharge, no ear pain Additional comments: rhinitis - Cardiovascular Cardiovascular ROS IM: no chest pain, no diaphoresis, no dyspnea, no lightheadedness, no palpitations, no syncope - Respiratory Respiratory: no cough, no dyspnea, no wheezing, no excessive phlegm production - Gastrointestinal Gastrointestinal: no abdominal pain, no diarrhea, no hematemesis, no hematochezia, no melena, no nausea, no vomiting - Musculoskeletal Musculoskeletal ROS IM: arthralgias, myalgias - Integumentary Integumentary IM: no rash, no unusual bruising - Neurological Neurological ROS: confusion, no convulsions, no disequilibrium, no dizziness, no focal weakness, no frequent falls, no headache(s), no numbness, no paresthesias, no tingling, no weakness - Constitutional Vitals: Temp Pulse Resp BP Pulse Ox 98.0 F 62 18 135/83 93 04/18/18 12:57 04/18/18 15:45 04/18/18 15:45 04/18/18 15:45 04/18/18 15:45 General appearance: Present: cooperative, A&O X 1, no acute distress Exam: SEE EXAM - Head Head exam: Present: atraumatic, normocephalic - Eye Eye exam: Present: PERRL, conjuntiva pink, sclera anicteric Pupils: Present: PERRL - Neck Neck exam general surgery: Present: supple, trachea midline. Absent: lymphadenopathy - Respiratory Respiratory exam: Present: CTAB. Absent: accessory muscle use, rales, rhonchi, wheezes - Cardiovascular Cardiovascular exam: Present: RRR, +S1, +S2. Absent: bradycardia, diastolic murmur, gallop, JVD, rubs, systolic murmur, tachycardia - GI/Abdominal GI/Abdominal exam: Present: normal bowel sounds, soft, no peritoneal signs. A bsent: distended, tenderness - Extremities Exam Extremities exam: Present: warm, radial pulses palpable and symmetrical. Absent: calf tenderness, cyanotic, pedal edema - Neurological Exam Neurological exam: Present: alert, CN II-XII intact, no focal deficits, strengths equal and symetr throughout. Absent: motor sensory deficit, pronater drift, facial droop, speech deficit - Expanded Neurological Exam Patient oriented to: Present: person Coma Scale Eye Opening: Spontaneous Coma Scale Motor Response: Obeys Commands Coma Scale Verbal Response: Confused Coma Scale Total: 14 - Skin Skin exam: Present: dry, intact Internal Med - H&P Results - Labs CBC & Chem 7: 04/18/18 13:10 04/18/18 13:10 Labs: Short CBC 04/18/18 Range/Units 13:10 WBC 7.3 (4.3-11.1) K/mcL Hgb 13.9 (12.9-16.9) g/dL Hct 40.5 (37.5-50.1) % Plt Count 199 (140-400) K/mcL Neutrophils # 3.9 (1.6-8.9) K/mcL BMP 04/18/18 13:10 Sodium 141 Potassium 4.1 Chloride 103 Carbon Dioxide 30 H BUN 11 Creatinine 0.73 Glucose 86 Calcium 9.0 Cardiac Enzymes 04/18/18 Range/Units 13:10 Troponin I < 0.03 (< 0.04) ng/mL Liver Function 04/18/18 Range/Units 13:10 Total Bilirubin 0.3 (0.3-1.0) mg/dL Direct Bilirubin 0.1 (0.0-0.2) mg/dL AST 19 (13-39) Units/L ALT 17 (7-52) Units/L Alkaline Phosphatase 58 (34-104) Units/L Albumin 4.2 (3.5-5.7) g/dL Urine 04/18/18 Range/Units 14:02 Urine Color Yellow (Yellow) Urine Clarity Clear (Clear) Urine pH 7.5 (5.0-8.0) pH Units Ur Specific [place] < 1.005 L (1.010-1.025) Urine Protein Negative (Neg-Trace) mg/dL Urine Glucose (UA) Normal (Normal) mg/dL - EKG Data EKG shows normal: sinus rhythm Rate: bradycardia - EKG Data EKG comments: 04/18/18 17:21 SINUS JENNIFER RTE OF 59 WITH NONSPECIFIC T WAVE CHANGES; NO CHANGES COMPARED TO PRIOR - Impressions ITS Impressions Chest X-Ray 04/18/18 13:34 IMPRESSION: Right lower lobe atelectatic and/or consolidative changes. Cardiomegaly and increased congestion. D/ / 04/18/2018 13:51:20 Allison Eisenberg MD / earnold Interpreting Provider: Allison Eisenberg MD Head CT 04/18/18 13:34 IMPRESSION: No acute intracranial abnormality. Mild cerebral atrophy. D/ / Faisal Ruiz MD / Faisal Ruiz MD Interpreting Provider: Faisal Ruiz MD - Assessment and plan (1) Breakthrough seizure Current Visit: Yes Status: Acute Assessment and plan: Absence zeizures this a.m; spouse reports that he was not responding was staring off into space, denies any tonic-clonic movements Does appear to have post ictal state with confusion malaise and fatigue spouse reports that he missed a dose of Dilantin yesterday Patient reported to myself and the hvac residential service technician that he missed 2 doses of Keppra yesterday Seizures most likely caused by missed doses of medication with noncompliance Spouse reports that the patient take care of his medications himself however, the patient appears to have a component of dementia Continue antiepileptic medications once med rec complete Check Dilantin level now CT of head negative for acute intracranial abnormality Chest x-ray with surgical findings of right lower lobe atelectatic versus consolidative changes Patient does not have s/SX of RHEOLOGIST infection No findings of metabolic derangements on CMP Continue seizure precautions Strict bedrest Ativan PRN for seizure activity EPCD's for DVT prophylaxis (2) Pneumonia Current Visit: Yes Status: Acute Assessment and plan: suspect PNA incidental findings of RLL atelectatic vs consolidative changes Does not appear acutely ill; afebrile and hemodynamically treat as CAP with rocephin and azithromycin Qualifiers: Pneumonia type: due to unspecified organism Laterality: right Lung location: lower lobe of lung Qualified Code(s): J18.1 - Lobar pneumonia, unspecified organism (3) HLD (hyperlipidemia) Current Visit: Yes Status: Acute Assessment and plan: Continue home meds and medication reconciliation completed Qualifiers: Hyperlipidemia type: unspecified Qualified Code(s): E78.5 - Hyperlipidemia, unspecified (4) HTN (hypertension) Current Visit: Yes Status: Acute Assessment and plan: Per history Resume antihypertensives when med rec complete hydralazine 10MG IVP PRN for SBP greater than 160 Qualifiers: Hypertension type: unspecified Qualified Code(s): I10 - Essential (primary) hypertension (5) Seizure Current Visit: Yes Status: Acute - Time Spent With Patient Total time spent is greater than 50% in coordination of care (as documented) at patient's floor/unit and/or counseling patient: less than 15 minutes
[2018-04-18] MEDS ORDERED: *HR* LORazepam 2 MG/ML VIAL IVP PRN (17:33)
[2018-04-18] MEDS ORDERED: Furosemide 40 MG TABLET PO PRN (18:19)
[2018-04-18] MEDS: levETIRAcetam 250 MG TABLET PO SCH (19:28)
[2018-04-18] MEDS: PHENobarbital 32.4 MG TABLET PO SCH (19:30)
[2018-04-19] MEDS ORDERED: Acetaminophen 325 MG TABLET PO ONE (03:19)
[2018-04-19 04:25] LABS: Hematocrit 38.9 % (37.5-50.1); Hemoglobin 13.2 g/dL (12.9-16.9); Mean Corpuscular HGB Conc 33.9 g/dL (31.6-35.5); Mean Corpuscular Hemoglobin 29.3 pg (28.0-33.3); Mean Corpuscular Volume 86.4 fL (83.0-100.0); Mean Platelet Volume 10.5 fL (9.4-12.4); Platelet Count 180 K/mcL (140-400); Red Cell Distribution Width 13.2 % (11.5-14.5)
[2018-04-19 04:46] LABS: BUN/Creatinine Ratio 15 (6-26); Blood Urea Nitrogen 10 mg/dL (8-23); Carbon Dioxide 29 mEq/L (23-29); Chloride 105 mEq/L (98-107); Glucose 85 mg/dL (70-105); Osmolality,Calculated 290 (280-300); Sodium 141 mEq/L (136-145); eGFR For Non-African Americans > 60 (> 60)
--- NOTE | 2018-04-19 08:08 | Neurology - Consult Note ---
Addendum entered and electronically signed by Donta Cuevas DO 04/19/18 17:40: The EEG does reveal epileptiform activity emanating from the right temporal lobe. However there was no actual seizure identified during the recording. Original Note: <[place] - Last Filed: 04/19/18 11:20> Date of Encounter: 04/19/18 Time of Encounter: 08:07 Assessment and Plan (1) Breakthrough seizure Current Visit: Yes Status: Acute Patient presented from Neurologist's office due to confusion, difficulty conc entrating, increased sleep, and intermittent episodes of unresponsiveness and staring off into space several times throughout the day. Concern for possible infectious process or metabolic disturbance that could lead to increased breakthrough seizures and potential progression to generalized tonic-clonic seizures. EEG pending Therapeutic Phenytoin level 17.9, Phenobarbital level 24 Resume home doses of Dilantin, Phenobarbital, and Keppra. Stress importance of medication compliance. (2) Generalized idiopathic epilepsy, not intractable, without status epilepticus Current Visit: Yes Status: Chronic Resume home meds Continue seizure precautions (3) Cerebral atrophy Current Visit: Yes Status: Chronic CT of the head was negative for acute intracranial abnormality and revealed mild cerebral atrophy. MRI brain results are pending (4) Pneumonia Current Visit: Yes Status: Acute Management per primary team. Qualifiers: Pneumonia type: due to unspecified organism Laterality: right Lung location: lower lobe of lung Qualified Code(s): J18.1 - Lobar pneumonia, unspecified organism (5) HTN (hypertension) Current Visit: Yes Status: Chronic Continue home meds Qualifiers: Hypertension type: unspecified Qualified Code(s): I10 - Essential (primary) hypertension (6) HLD (hyperlipidemia) Current Visit: No Status: Chronic Continue home meds Qualifiers: Hyperlipidemia type: unspecified Qualified Code(s): E78.5 - Hyperlipidemia, unspecified (7) VALERIANO on CPAP Current Visit: Yes Status: Chronic Continue CPAP at bedtime History of Present Illness Chief complaint: Seizure HPI: Mr. Garcia is a 78 year old male with a PMH of CVA, HTN, HLD, CAD with stents, and previous absence and tonic-clonic seizures that presented yesterday to the ED from his Neurologist's office due to confusion, difficulty concentrating, increased sleep, and intermittent episodes of unresponsiveness and staring off into space several times throughout the day. Patient missed two doses of Keppra and one dose of Dilantin the previous evening. Patient's took him to see his neurologist Dr. Bragg yesterday afternoon who recommended inpatient evaluation for possible infectious process or metabolic disturbance that could lead to increased breakthrough seizures and potential progression to generalized tonic-clonic seizures. Patient denied any fevers, photophobia, headaches, neck pain, vomiting, lethargy, rash, tongue biting, or urinary incontinence. He has not had any seizure activity since admission and only complains of a frontal headache at this time. In the ED, the patient appeared to be in a postictal phase and was only oriented to self. CT of the head was negative for acute intracranial abnormality. Chest x-ray revealed findings concerning for possible right lower lobe pneumonia. He was started on antibiotics for pneumonia and neurology was consulted for further recommendations. MRI brain was ordered and patient was started back on his home doses of Dilantin, Phenobarbital, and Keppra. Past Med Surg Social Fam HX - Past Medical History Medical history: hyperlipidemia, hypertension, myocardial infarction, seizures Psychiatric history: no psych history - Social History Smoking Status: Never smoker Smokeless Tobacco Status: No Alcohol use: none Drug use: none - Family History Mother Hx Family Endocrine Disorder: Yes (DM) Father Hx Family Cardiac Disorders: Yes (OK) Brother Hx Family Cardiac Disorders: Yes (OK) Hx Family Cancer: Yes Medications and Allergies Clopidogrel [Plavix] 75 mg PO DAILY 04/18/18 [History] Furosemide [Lasix] 40 mg PO Q48H PRN 04/18/18 [History] Metoprolol [Lopressor] 12.5 mg PO BID 04/18/18 [History] PHENobarbital [Phenobarbital] 32.4 mg PO QID 04/18/18 [History] Phenytoin ER [Dilantin ER] 100 mg PO 0800,1200,1700 04/18/18 [History] Phenytoin ER [Dilantin ER] 200 mg PO HS 04/18/18 [History] Rosuvastatin Calcium [Crestor] 10 mg PO DAILY 04/18/18 [History] Tamsulosin [Flomax] 0.4 mg PO DAILY 04/18/18 [History] Vit C/E/Zn/Coppr/Lutein/Zeaxan [Preservision Areds 2 Softgel] 1 tab PO BID 04/18/18 [History] levETIRAcetam [Roweepra] 500 mg PO BID 04/18/18 [History] Allergy/AdvReac Type Severity Reaction Status Date / Time atorvastatin AdvReac Muscle Pain Verified 04/18/18 18:12 pravastatin AdvReac Muscle Pain Verified 04/18/18 18:12 All Systems: The remainder of the systems were reviewed and are negative - Constitutional Constitutional ROS IM: chills, fatigue, headache(s), lethargy, malaise, no fever(s), no weakness - Nose, Mouth, Throat Nose, mouth and throat: headache(s), neck pain, sinus pressure, no dizziness, no nasal congestion, no nasal trauma, no nose pain - Cardiovascular Cardiovascular ROS IM: no chest pain, no palpitations - Respiratory Respiratory IM: cough, chest congestion, excessive phlegm production, change in phlegm color - Gastrointestinal Gastrointestinal: abdominal pain, constipation, no nausea, no vomiting - Genitourinary Genitourinary ROS: no difficulty voiding, no urinary frequency, no urinary urgency - Musculoskeletal Musculoskeletal ROS IM: back pain, neck pain, numbness (chronic feet numbness), no muscle cramps, no muscle weakness - Integumentary Integumentary IM: no rash, no skin ulcer - Neurological Neurological ROS: behavioral changes, confusion, convulsions, headache(s), numbness, paresthesias, no abnormal speech, no dizziness, no frequent falls, no loss of vision, no restless legs, no sensory deficit, no syncope, no tremor(s), no weakness - Psychiatric Psychiatric general PM: no anxiety, no depression Physical Examination - Vital Signs Vital Signs: Initial Vital Signs Temp Pulse Resp BP Pulse Ox 98.0 F 64 18 133/79 97 04/18/18 12:46 04/18/18 12:46 04/18/18 12:46 04/18/18 12:46 04/18/18 12:46 - Constitutional General appearance: comfortable - Neurologic Sensorimotor examination: intact (numbness in feet, chronic) Detailed motor examination: grossly full strength in all extremities, full strength in all major muscle groups Motor examination - right side: 5/5: deltoids, biceps, triceps, publication manager, hip flexors, tibialis Anterior, quadriceps, toe extension (EHL), plantarflexion Motor examination - left side: 5/5: deltoids, biceps, triceps, hip flexors, publication manager, quadriceps, tibialis Anterior, toe extension (EHL), plantarflexion Detailed sensory examination: intact, light touch Reflexes: Biceps: 2+, Triceps: 2+, Brachioradialis: 2+, Patella: 2+, Achilles: 2+ Mental Status Examination: awake, alert, oriented to person, oriented to place, oriented to time, follows commands appropriately, answers questions appropri ately, no agnosia, no aphasia, no aproxia, makes eye contact, follows simple commands Cranial nerve examination: PERRL, EOMI, visual tomas intact, sensory to face intact, mastication intact, no facial asymmetry is present, no dysarthria, flexes SCM and trapezius muscles symmetrically with full power, tongue protrudes midline, no atrophy or facial fasiculations present Cerebellar examination: no dysmetria, performs finger to nose and heel to frost symmetrically without ataxia Results - Laboratory Findings CBC and BMP: 04/19/18 03:33 04/19/18 03:33 Abnormal lab findings: Abnormal lab results Creatinine 0.65 mg/dL (0.70-1.30) L 04/19/18 03:33 Ammonia 63 mcmol/L (16-53) H 04/18/18 13:51 Ur Specific [place] < 1.005 (1.010-1.025) L 04/18/18 14:02 Ur Barbiturates Screen Positive ng/mL (Oznpag=551) H 04/18/18 14:02 - Diagnostic Findings Additional findings: ITS Impressions Chest X-Ray 04/18/18 13:34 IMPRESSION: Right lower lobe atelectatic and/or consolidative changes. Cardiomegaly and increased congestion. D/ / 04/18/2018 13:51:20 Allison Eisenberg MD / earnold Interpreting Provider: Allison Eisenberg MD Head CT 04/18/18 13:34 IMPRESSION: No acute intracranial abnormality. Mild cerebral atrophy. D/ / Faisal Ruiz MD / Faisal Ruiz MD Interpreting Provider: Faisal Ruiz MD Consult Discharge Plan - Plan Referrals: Sophie Kelley MD [Primary Care Provider] - <Donta Cuevas - Last Filed: 04/19/18 17:40> Date of Encounter: 04/19/18 Assessment and Plan (1) Breakthrough seizure Current Visit: Yes Status: Acute It is my suspicion that would have resulted in the confusion was something transient. Therefore the differential diagnosis should include possible breakthrough seizure, possible postictal state, possible ever with regard to taking medication properly. Certainly this could mean that he may not be enough, we may have taken too much. I did not get the impression that he may have a underlying dementia. However from this part he seems to be back to his normal baseline. I will have him follow-up with Dr. Bragg after discharge. I will consider changing her discontinuing the Dilantin because he does have significant cerebellar atrophy along with signs of peripheral neuropathy. Othe rwise he may discharge him at your discretion. History of Present Illness HPI: The chart was reviewed, the patient was seen and examined along with the resid ent. I agree with his assessment of the history as stated above. I did review all labs as well as imaging studies independently. All Systems: The remainder of the systems were reviewed and are negative Review of Systems: The balance of the systems review is negative. Physical Examination - Vital Signs Vital Signs: Initial Vital Signs Temp Pulse Resp BP Pulse Ox 98.0 F 64 18 133/79 97 04/18/18 12:46 04/18/18 12:46 04/18/18 12:46 04/18/18 12:46 04/18/18 12:46 Results - Laboratory Findings CBC and BMP: 04/19/18 03:33 04/19/18 03:33 Abnormal lab findings: Abnormal lab results Creatinine 0.65 mg/dL (0.70-1.30) L 04/19/18 03:33 Ammonia 63 mcmol/L (16-53) H 04/18/18 13:51 Ur Specific [place] < 1.005 (1.010-1.025) L 04/18/18 14:02 Ur Barbiturates Screen Positive ng/mL (Vgdepd=071) H 04/18/18 14:02
[2018-04-19] MEDS ORDERED: cefTRIAXone 1,000 MG in Water for inj. (sterile) 20 ML 10 ML IVP SCH (09:00)
[2018-04-19] MEDS ORDERED: Azithromycin 250 MG TABLET PO SCH (09:00)
--- NOTE | 2018-04-19 09:07 | Electrocardiograph Report ---
[place] [address] Test Date: 2018-04-18 Pat Name: Dereck Garcia Department: [id number] Room: 3B22 Gender: M Form Grader: : 1940 Requested By: Love See Order Number: [id number] Reading MD: Leroy Melvin Measurements Intervals [place] Rate: 59 P: 75 KS: 204 QRS: 77 QRSD: 97 T: 60 QT: 411 QTc: 408 Interpretive Statements Sinus rhythm Ventricular premature complex Borderline prolonged [place] interval Electronically Signed On 04-19-2018 9:05:09 EST by Leroy Melvin
[2018-04-19] MEDS ORDERED: Acetaminophen 325 MG TABLET PO PRN (09:58)
[2018-04-19] MEDS: levETIRAcetam 250 MG TABLET PO SCH ×2 (11:12→19:41)
[2018-04-19] MEDS: Multivit/Ca/Min/Fe/FA 1 TAB TABLET PO SCH (11:12)
[2018-04-19] MEDS: PHENobarbital 32.4 MG TABLET PO SCH ×4 (11:52→19:41)
--- NOTE | 2018-04-19 16:00 | Internal Med Progress Note ---
Hospitalist Progress Note - Encounter Date of Encounter: 04/19/18 Time of Encounter: 15:58 - Subjective Interval History: Seen and examined at bedside today. No acute changes overnight. Denies any return of seizure activity - Exam Vitals: Temp Pulse Resp BP Pulse Ox 97.6 F 59 17 117/74 90 04/19/18 14:55 04/19/18 14:55 04/19/18 14:55 04/19/18 14:55 04/19/18 14:55 Exam: PHYSICAL EXAMINATION: GENERAL: The patient is an elderly male, NAD, and O 2 HEENT: Head is normocephalic and atraumatic. Extraocular muscles are intact. Pupils are equal, round, and reactive to light and accommodation. NECK: Supple. No carotid bruits. No lymphadenopathy or thyromegaly. LUNGS: Clear to auscultation B/L AP and L. HEART: Regular rate and rhythm, S1, S2 without murmur. ABDOMEN: Soft, nontender, and nondistended. Positive bowel sounds. No hepatosplenomegaly was noted. EXTREMITIES: Without any cyanosis, clubbing, rash, lesions or edema. NEUROLOGIC: Cranial nerves II through XII are grossly intact. PSYCHIATRIC: Appropriate affect, denies SI/HI, without agitation or anxiety SKIN: No ulceration or induration present. - Assessment and Plan (1) Breakthrough seizure Current Visit: Yes Status: Acute Assessment and Plan: Absence zeizures this a.m; spouse reports that he was not responding was staring off into space, denies any tonic-clonic movements Does appear to have post ictal state with confusion malaise and fatigue spouse reports that he missed a dose of Dilantin yesterday Patient reported to myself and the pharmacy sales assistant that he missed 2 doses of Keppra yesterday Seizures most likely caused by missed doses of medication with noncompliance Spouse reports that the patient take care of his medications himself however, the patient appears to have a component of dementia Continue antiepileptic medications once med rec complete Check Dilantin level now CT of head negative for acute intracranial abnormality Chest x-ray with surgical findings of right lower lobe atelectatic versus consolidative changes Patient does not have s/SX of LOCAL GOVERNMENT LEGISLATOR infection No findings of metabolic derangements on CMP Continue seizure precautions Strict bedrest Ativan PRN for seizure activity EPCD's for DVT prophylaxis 04/19--EEG pending. MRI of brain obtained without any acute intracranial findings. Therapeutic phenytoin level 17.9, phenobarbital level 24. Patient admitted to medication noncompliance. Stress importance of medication compliance. I believe that noncompliance lead 2 breakthrough seizures. Neurology continue to follow (2) Pneumonia Current Visit: Yes Status: Acute Assessment and Plan: suspect PNA incidental findings of RLL atelectatic vs consolidative changes Does not appear acutely ill; afebrile and hemodynamically treat as CAP with rocephin and azithromycin 04/19--the patient continues to be without respiratory distress. He is nontoxic appearing and afebrile as well as hemodynamically stable. No leukocytosis noted on today's labs. Low suspicious for pneumonia. Discontinue Rocephin and azithromycin at this time. Continue to monitor. (3) HLD (hyperlipidemia) Current Visit: No Status: Chronic Assessment and Plan: Continue home meds (4) HTN (hypertension) Current Visit: Yes Status: Chronic Assessment and Plan: Per history Resume antihypertensives hydralazine 10MG IVP PRN for SBP greater than 160 (5) Seizure Current Visit: Yes Status: Acute (6) Cerebellar atrophy Current Visit: Yes Status: Acute - Time Spent with Patient Total time spent is greater than 50% in coordination of care (as documented) at patient's floor/unit and/or counseling patient: less than 15 minutes Plan of Care Discussed with: patient Internal Medicine: Result - Labs CBC & Chem 7: 04/19/18 03:33 04/19/18 03:33 Labs: Short CBC 04/19/18 Range/Units 03:33 WBC 7.7 (4.3-11.1) K/mcL Hgb 13.2 (12.9-16.9) g/dL Hct 38.9 (37.5-50.1) % Plt Count 180 (140-400) K/mcL BMP 04/19/18 03:33 Sodium 141 Potassium 4.0 Chloride 105 Carbon Dioxide 29 BUN 10 Creatinine 0.65 L Glucose 85 Calcium 9.0 - Impressions Impressions Brain MRI 04/19/18 09:00 IMPRESSION: 1. No acute intracranial abnormality. No acute infarct. 2. Mild global parenchymal volume loss with chronic microvascular ischemic change. 3. There is asymmetric volume loss involving the cerebellar hemispheres bilaterally when compared to the supratentorial compartment, which appears unchanged from the prior exam. D/ / Zhang Centeno MD / Zhang Centeno MD Interpreting Provider: Zhang Centeno MD Consult Discharge Plan - Plan Referrals: Sophie Kelley MD [Primary Care Provider] - (2) Pneumonia Qualifiers: Pneumonia type: due to unspecified organism Laterality: right Lung location: lower lobe of lung Qualified Code(s): J18.1 - Lobar pneumonia, unspecified organism (3) HLD (hyperlipidemia) Qualifiers: Hyperlipidemia type: unspecified Qualified Code(s): E78.5 - Hyperlipidemia, unspecified (4) HTN (hypertension) Qualifiers: Hypertension type: unspecified Qualified Code(s): I10 - Essential (primary) hypertension
--- NOTE | 2018-04-19 17:55 | EEG/EMG/Oth Biometrics Report ---
EEG Procedure Report Date of procedure: 04/19/18 EEG Procedure: Routine EEG Procedure Note: This is a report of a 21 channel bipolar and referential montage EEG. The posterior dominant rhythm consists of mixed moderate to low voltage theta and alpha frequencies. However is poorly organized and poorly sustained. Is not reactive to eye opening. Hyperventilation is not performed during recording. There is no sleep architecture identified during the study. However, phase reversals and spikes identified emanating from the right temporal lobe. An electrical field is also present. This is consistent with epileptiform potential. Photic stimulations performed and does not produce a driving response. The EKG rhythm strip reveals normal sinus rhythm at 60 bpm. Impressions: This EEG recording is abnormal, consisting of epileptiform activity emanating from the right temporal lobe. However this does not evolve to electrographic seizure during the recording. The background is also poorly organized and poorly sustained consistent with a mild generalized encephalopathy. Etiologies to explain this phenomena might include toxic, metabolic, postictal or degenerative. Please correlate clinically.
[2018-04-20 05:25] LABS: Basophils # 0.1 K/mcL (0.0-0.2); Basophils % 0.8 %; Eosinophils # 0.4 K/mcL (0.0-0.6); Eosinophils % 6.8 %; Hematocrit 39.5 % (37.5-50.1); Hemoglobin 13.2 g/dL (12.9-16.9); Immature Granulocytes % 0.2 % (0-4); Lymphocytes # 1.8 K/mcL (0.6-4.6); Lymphocytes % 27.1 %; Mean Corpuscular HGB Conc 33.4 g/dL (31.6-35.5); Mean Corpuscular Hemoglobin 29.3 pg (28.0-33.3); Mean Corpuscular Volume 87.8 fL (83.0-100.0); Mean Platelet Volume 10.5 fL (9.4-12.4); Neutrophils # 3.2 K/mcL (1.6-8.9); Platelet Count 190 K/mcL (140-400); Segmented Neutrophils % 49.1 %
[2018-04-20 05:39] LABS: BUN/Creatinine Ratio 19 (6-26); Blood Urea Nitrogen 13 mg/dL (8-23); Calcium 8.6 mg/dL (8.6-10.3); Carbon Dioxide 28 mEq/L (23-29); Chloride 106 mEq/L (98-107); Glucose 88 mg/dL (70-105); Osmolality,Calculated 292 (280-300); Potassium 3.9 mEq/L (3.5-5.1); Sodium 141 mEq/L (136-145); eGFR For Non-African Americans > 60 (> 60)
[2018-04-20] MEDS: PHENobarbital 32.4 MG TABLET PO SCH (09:09)
[2018-04-20] MEDS: levETIRAcetam 250 MG TABLET PO SCH (09:09)
[2018-04-20] MEDS: Multivit/Ca/Min/Fe/FA 1 TAB TABLET PO SCH (09:10)
[2018-04-20 11:11] VITALS: BP 122/74
--- NOTE | 2018-04-20 11:33 | Discharge Summary ---
- NOTES TO OUTPATIENT PROVIDER Notes to Outpatient Provider: f/u with neurology and PCP in 1-2 weeks. Discuss med compliance. No pending studies Orders not resulted at time of discharge: Pending orders 04/18/18 17:26 Culture,Blood [BC] Stat Phenytoin (Dilantin) Free Routine 04/21/18 04:00 Basic Metabolic Panel AM 0400 Complete Blood Count [HEME] AM 0400 04/22/18 04:00 Basic Metabolic Panel AM 0400 Complete Blood Count [HEME] AM 0400 Date of Encounter: 04/20/18 Time of Encounter: 11:24 - Discharge Diagnosis (1) Breakthrough seizure Priority: Primary Status: Acute (2) Pneumonia Priority: Secondary Status: Acute Qualifiers: Pneumonia type: due to unspecified organism Laterality: right Lung location: lower lobe of lung Qualified Code(s): J18.1 - Lobar pneumonia, unspecified organism (3) HLD (hyperlipidemia) Priority: Secondary Status: Chronic Qualifiers: Hyperlipidemia type: unspecified Qualified Code(s): E78.5 - Hyperlipidemia, unspecified (4) HTN (hypertension) Priority: Secondary Status: Chronic Qualifiers: Hypertension type: unspecified Qualified Code(s): I10 - Essential (primary) hypertension (5) Seizure Priority: Secondary Status: Acute (6) Cerebellar atrophy Priority: Secondary Status: Acute Hospital course: Mr. Garcia is a 78 year old male with a PMH of CVA, HLD, HTN, PA with stents, absence and tonic-clonic seizures who follows with [facility]. He presented with his spouse due to an episode of breakthrough seizures. Neurology consulted throughout stay. EEG obtained and does reveal epileptiform activity emanating from the right temporal lobe however there are no actual seizures identified during the recording. CT of head and MRI of head negative for acute intracranial findings. Phenytoin and phenobarbital both therapeutic. On admission the patient admitted to being noncompliant with medication regimen. Consider this as cause of suspected breakthrough seizures. Differential diagnosis per neurology included breakthrough seizures, possible postictal state or medication noncompliance. Recommendations per Dr. Cuevas neurology are to consider changing or discontinuing Dilantin because the patient is displaying significant cerebellar atrophy along with signs of peripheral neuropathy. Patient appears to have returned to baseline. He has been instructed to follow- up with Dr. Bragg after discharge. Additionally, he has been instructed to follow-up with PCP. Discharge discussed with: patient, nurse - Time Spent with Patient Total time spent providing and/or coordinating discharge services: Less than 30 minutes - Discharge Medications Home Medications: Clopidogrel [Plavix] 75 mg PO DAILY 04/18/18 [History] Furosemide [Lasix] 40 mg PO Q48H PRN 04/18/18 [History] Metoprolol [Lopressor] 12.5 mg PO BID 04/18/18 [History] PHENobarbital [Phenobarbital] 32.4 mg PO QID 04/18/18 [History] Phenytoin ER [Dilantin ER] 100 mg PO 0800,1200,1700 04/18/18 [History] Phenytoin ER [Dilantin ER] 200 mg PO HS 04/18/18 [History] Rosuvastatin Calcium [Crestor] 10 mg PO DAILY 04/18/18 [History] Tamsulosin [Flomax] 0.4 mg PO DAILY 04/18/18 [History] Vit C/E/Zn/Coppr/Lutein/Zeaxan [Preservision Areds 2 Softgel] 1 tab PO BID 04/18/18 [History] levETIRAcetam [Roweepra] 500 mg PO BID 04/18/18 [History] Allergies/Adverse Reactions: Allergy/AdvReac Type Severity Reaction Status Date / Time atorvastatin AdvReac Muscle Pain Verified 04/18/18 18:12 pravastatin AdvReac Muscle Pain Verified 04/18/18 18:12 Date of admission: 04/18/18 16:03 Primary care physician: Sophie Kelley MD Consults: 04/18/18 17:40 Consult to Neurology [CONS] Routine Consulting Provider: [facility] Reason for Consult: seizure Call Completed: No 04/19/18 15:01 Consult to Interpret Exam [CONS] Routine Consulting Provider: Brodie Blackman Consult to Interpret Exam: Interpret EEG Discharging clinician: Cliff Garcia Anticipated date of discharge: 04/20/18 - Constitutional Vitals: Temp Pulse Resp BP Pulse Ox 98.3 F 50 18 122/74 95 04/20/18 11:05 04/20/18 11:05 04/20/18 11:05 04/20/18 11:05 04/20/18 11:05 General appearance: Present: cooperative, A&O X 1, no acute distress Exam: PHYSICAL EXAMINATION: GENERAL: The patient is an elderly male, NAD, and O 3 HEENT: Head is normocephalic and atraumatic. Extraocular muscles are intact. Pupils are equal, round, and reactive to light and accommodation. NECK: Supple. No carotid bruits. No lymphadenopathy or thyromegaly. LUNGS: Clear to auscultation B/L AP and L. HEART: Regular rate and rhythm, S1, S2 without murmur. ABDOMEN: Soft, nontender, and nondistended. Positive bowel sounds. No hepatosplenomegaly was noted. EXTREMITIES: Without any cyanosis, clubbing, rash, lesions or edema. NEUROLOGIC: Cranial nerves II through XII are grossly intact. PSYCHIATRIC: Appropriate affect, denies SI/HI, without agitation or anxiety SKIN: No ulceration or induration present. - Patient Status Disposition: Home, Self-Care Condition: Fair Functional capacity at discharge: independent ambulation Overall status at discharge: patient is back to baseline - Discharge Instructions Instructions: Non-epileptic Seizures (DC) Follow Up With: Sophie Kelley MD [Primary Care Provider] - 04/26/18 10:00 am () Greg Bragg MD [Partnered Physician] - 04/30/18 12:30 pm Additional Instructions: Follow-up appointments: If there is not an appointment listed below, please call your physician and schedule a follow-up appointment. If you have congestive heart failure and your symptoms return, make an appointment with your physician. Medication List: Carry an up to date list of medications you are taking at all time. We have given you an updated medication list including any new medications that you have been prescribed. Please provide that list to your primary provider Symptoms: If your condition changes or you experience any of the following symptoms, notify your physician immediately: Unusual or worsening pain, fever, persistent nausea and vomiting, bleeding, increase in swelling (especially in your legs), sudden weight gain, extreme dizziness, chest pain, increased drainage or redness from a wound or incision. Go to the emergency department if you experience a problem with breathing. Weights: If you have a history of swelling or shortness of breath, weigh yourself daily and notify your physician if you have a weight gain of two or more pounds in one day or 5 or more pounds in a week. If you experience any of the warning signs for stroke: Sudden numbness or weakness of the face, arm or leg; especially on one side of the body, sudden confusion, trouble speaking or understanding, sudden trouble seeing in one or both eyes, sudden trouble walking, dizziness, loss of balance or coordination, sudden sever headache with no cause; Call 911 or go to the emergency room. Stroke is a medical emergency. Some risk factors for stroke: Age, cigarette smoking, diabetes, excessive alcohol consumption, family history, high blood pressure, overweight, physical inactivity, prior stroke, heart attack, diagnosis of carotid artery stenosis or other artery disease. If you smoke, STOP: Smoking or tobacco use significantly increases your risk of heart and lung disease. Your chance of disease greatly increases if you continue to smoke. For more information, call the [place] tobacco quit line for smoking cessation 9-576-GPZW-NOW ( ) - Diet and Activity Activity: increase activity as tolerated, resume usual activities as tolerated Diet: low fat, low cholesterol, low salt diet
== END 2018-04-20 12:33 | disposition home or self-care (01) ==
LOC: 3BNU 12:44 → EMEROOARM 12:44 → 3BNU 17:05
PROVIDERS: ADMIT Internal Medicine Cardiovascular Disease; ATTEND Internal Medicine Cardiovascular Disease

== ENCOUNTER 2020-05-05 05:41 | Inpatient (IN) ==
[2020-05-05] MEDS ORDERED: Morphine Sulfate 2 MG/ML SYRINGE IVP ONE (06:39)
[2020-05-05 07:08] LABS: Basophils % 0.3 %; Eosinophils # 0.2 K/mcL (0.0-0.6); Eosinophils % 2.4 %; Hematocrit 41.2 % (37.5-50.1); Hemoglobin 13.9 g/dL (12.9-16.9); Immature Granulocytes % 0.3 % (0-4); Lymphocytes # 1.5 K/mcL (0.6-4.6); Mean Corpuscular HGB Conc 33.7 g/dL (31.6-35.5); Mean Corpuscular Hemoglobin 30.2 pg (28.0-33.3); Mean Corpuscular Volume 89.4 fL (83.0-100.0); Mean Platelet Volume 10.9 fL (9.4-12.4); Monocytes # 1.2 K/mcL (0.0-1.3); Monocytes % 12.2 %; Platelet Count 195 K/mcL (140-400); Red Blood Count 4.61 M/mcL (4.19-5.50); Red Cell Distribution Width 12.9 % (11.5-14.5); Segmented Neutrophils % 69.8 %; White Blood Count 10.1 K/mcL (4.3-11.1)
[2020-05-05 07:12] LABS: INR 1.1
[2020-05-05 07:15] LABS: Activated Partial Thrombo Time 31.6 Seconds (26.0-36.0)
[2020-05-05 07:20] LABS: Alanine Aminotransferase 16 Units/L (7-52); Albumin 4.1 g/dL (3.5-5.7); Albumin/Globulin Ratio 1.3 (1.1-2.2); Alkaline Phosphatase 61 Units/L (34-104); Aspartate Amino Transferase 18 Units/L (13-39); BUN/Creatinine Ratio 14 (6-26); Bilirubin,Total 0.3 mg/dL (0.3-1.0); Blood Urea Nitrogen 11 mg/dL (8-23); Calcium 8.7 mg/dL (8.6-10.3); Carbon Dioxide 31 mEq/L (23-29); Chloride 104 mEq/L (98-107); Globulin 3.1 g/dL (2.4-3.5); Glucose 93 mg/dL (70-105); Osmolality,Calculated 289 (280-300); Potassium 3.9 mEq/L (3.5-5.1); Sodium 140 mEq/L (136-145); Total Protein 7.2 g/dL (6.4-8.9); eGFR For African Americans > 60 (> 60); eGFR For Non-African Americans > 60 (> 60)
[2020-05-05] MEDS ORDERED: Naloxone 0.4 MG/ML INJ IVP PRN (08:14)
[2020-05-05] MEDS ORDERED: levETIRAcetam 250 MG TABLET PO ONE (08:23)
[2020-05-05] MEDS ORDERED: PHENobarbitaL 32.4 MG TABLET PO ONE (08:23)
[2020-05-05 08:56] LABS: Adenovirus Not Detected (Not Detect); Coronavirus 229E Not Detected (Not Detect); Coronavirus HKU1 Not Detected (Not Detect); Coronavirus NL63 Not Detected (Not Detect)
[2020-05-05 08:57] LABS: Bordetella Pertussis Not Detected (Not Detect); Chlamydophila pneumoniae Not Detected (Not Detect); Coronavirus OC43 Not Detected (Not Detect); Human Metapneumovirus Not Detected (Not Detect); Human Rhinovirus/Enterovirus Not Detected (Not Detect); Influenza A Subtype 2009 H1 Not Detected (Not Detect); Influenza B Not Detected (Not Detect); Mycoplasma pneumoniae Not Detected (Not Detect); Parainfluenza Virus 1 Not Detected (Not Detect); Parainfluenza Virus 2 Not Detected (Not Detect); Parainfluenza Virus 3 Not Detected (Not Detect); Parainfluenza Virus 4 Not Detected (Not Detect); Respiratory Syncytial Virus Not Detected (Not Detect); SARS-CoV-2 Not Detected (Not Detect)
[2020-05-05] MEDS: *HR* OxyCODONE/APAP 10/325 TABLET PO PRN ×2 (13:02→21:31)
[2020-05-05] MEDS: *HR* Heparin 5,000 UNIT/ML VIAL SQ SCH (18:00)
[2020-05-05] MEDS ORDERED: NON-FORMULARY MEDICATION 1 EACH EACH (Vit C/E/Zn/Coppr/Lutein/Zeaxan [Preservision Areds 2 PO SCH (21:00)
[2020-05-05] MEDS: levETIRAcetam 250 MG TABLET PO SCH (21:30)
[2020-05-05] MEDS: PHENobarbitaL 32.4 MG TABLET PO SCH (21:31)
[2020-05-06] MEDS ORDERED: Acetaminophen 325 MG TABLET PO PRN (01:07)
[2020-05-06] MEDS: *HR* OxyCODONE/APAP 10/325 TABLET PO PRN ×2 (03:44→09:43)
[2020-05-06] MEDS: *HR* Heparin 5,000 UNIT/ML VIAL SQ SCH ×2 (06:12→17:33)
[2020-05-06 07:30] LABS: Basophils % 0.4 %; Eosinophils # 0.4 K/mcL (0.0-0.6); Eosinophils % 4.1 %; Hematocrit 39.3 % (37.5-50.1); Hemoglobin 13.1 g/dL (12.9-16.9); Immature Granulocytes % 0.2 % (0-4); Lymphocytes # 1.2 K/mcL (0.6-4.6); Lymphocytes % 12.2 %; Mean Corpuscular HGB Conc 33.3 g/dL (31.6-35.5); Mean Corpuscular Hemoglobin 29.8 pg (28.0-33.3); Mean Corpuscular Volume 89.3 fL (83.0-100.0); Monocytes # 1.9 K/mcL (0.0-1.3); Monocytes % 18.4 %; Neutrophils # 6.6 K/mcL (1.6-8.9); Platelet Count 163 K/mcL (140-400); Red Cell Distribution Width 12.6 % (11.5-14.5); Segmented Neutrophils % 64.7 %; White Blood Count 10.2 K/mcL (4.3-11.1)
[2020-05-06 07:51] LABS: BUN/Creatinine Ratio 22 (6-26); Blood Urea Nitrogen 13 mg/dL (8-23); Calcium 8.5 mg/dL (8.6-10.3); Carbon Dioxide 28 mEq/L (23-29); Chloride 101 mEq/L (98-107); Glucose 102 mg/dL (70-105); Osmolality,Calculated 280 (280-300); Potassium 3.9 mEq/L (3.5-5.1); Sodium 135 mEq/L (136-145); eGFR For African Americans > 60 (> 60); eGFR For Non-African Americans > 60 (> 60)
[2020-05-06] MEDS: Furosemide 40 MG TABLET PO SCH (09:40)
[2020-05-06] MEDS: levETIRAcetam 250 MG TABLET PO SCH ×2 (09:40→19:59)
[2020-05-06] MEDS: PHENobarbitaL 32.4 MG TABLET PO SCH ×4 (09:40→19:59)
[2020-05-06] MEDS ORDERED: *HR* Propofol 200 MG/20 ML VIAL IVP ONE (11:57)
[2020-05-06] MEDS ORDERED: Lidocaine -MPF 2% 2 ML VIAL ONE (11:58)
[2020-05-06] MEDS ORDERED: Ondansetron 4 MG/2 ML VIAL IVP PRN (12:42)
[2020-05-06] MEDS ORDERED: *HR* OxyCODONE Immed Rel 5 MG TABLET PO PRN (12:42)
[2020-05-06] MEDS ORDERED: *HR* HYDROmorphone PF 0.5 MG/0.5 ML SYRINGE IVP PRN (12:42)
[2020-05-06] MEDS ORDERED: Promethazine 6.25 MG in Water for inj. (sterile) 20 ML IVPB PRN (12:42)
[2020-05-06] MEDS ORDERED: *HR* FentaNYL (PF) 100 MCG/2 ML VIAL ONE (12:52)
[2020-05-06] MEDS ORDERED: *HR* Succinylcholine 200 MG/10 ML VIAL IVP ONE (12:54)
[2020-05-06] MEDS ORDERED: *HR* Rocuronium Bromide 50 MG/5 ML VIAL ONE ×2 (12:54→13:56)
[2020-05-06] MEDS ORDERED: ceFAZolin 2,000 MG in 0.9 % Sodium Chloride 100 ML IVPB ONE (13:05)
[2020-05-06] MEDS ORDERED: Dexamethasone 4 MG/ML VIAL ONE (13:43)
[2020-05-06] MEDS ORDERED: Ondansetron 4 MG/2 ML VIAL ONE (13:43)
[2020-05-06] MEDS ORDERED: Ropivacaine/PF 0.5% 30 ML VIAL ONE (14:35)
[2020-05-07] MEDS: CeFAZolin 2 GM/120 ML BAG IVPB SCH ×2 (00:04→08:20)
[2020-05-07 05:16] LABS: Basophils # 0.1 K/mcL (0.0-0.2); Basophils % 0.4 %; Eosinophils # 0.2 K/mcL (0.0-0.6); Eosinophils % 1.8 %; Hematocrit 36.2 % (37.5-50.1); Hemoglobin 11.9 g/dL (12.9-16.9); Immature Granulocytes % 0.5 % (0-4); Lymphocytes # 1.6 K/mcL (0.6-4.6); Lymphocytes % 11.8 %; Mean Corpuscular HGB Conc 32.9 g/dL (31.6-35.5); Mean Corpuscular Volume 88.3 fL (83.0-100.0); Mean Platelet Volume 11.2 fL (9.4-12.4); Monocytes # 3.1 K/mcL (0.0-1.3); Monocytes % 23.1 %; Neutrophils # 8.3 K/mcL (1.6-8.9); Platelet Count 146 K/mcL (140-400); Red Cell Distribution Width 12.5 % (11.5-14.5); Segmented Neutrophils % 62.4 %; White Blood Count 13.3 K/mcL (4.3-11.1)
[2020-05-07 05:21] LABS: BUN/Creatinine Ratio 18 (6-26); Blood Urea Nitrogen 13 mg/dL (8-23); Calcium 8.4 mg/dL (8.6-10.3); Carbon Dioxide 27 mEq/L (23-29); Chloride 96 mEq/L (98-107); Glucose 116 mg/dL (70-105); Osmolality,Calculated 275 (280-300); Potassium 3.8 mEq/L (3.5-5.1); Sodium 132 mEq/L (136-145); eGFR For African Americans > 60 (> 60); eGFR For Non-African Americans > 60 (> 60)
[2020-05-07] MEDS: *HR* Heparin 5,000 UNIT/ML VIAL SQ SCH ×2 (06:45→16:44)
[2020-05-07] MEDS: PHENobarbitaL 32.4 MG TABLET PO SCH ×4 (08:21→21:04)
[2020-05-07] MEDS: Furosemide 40 MG TABLET PO SCH (08:21)
[2020-05-07] MEDS: levETIRAcetam 250 MG TABLET PO SCH ×2 (08:21→21:04)
[2020-05-07] MEDS ORDERED: *HR* OxyCODONE Immed Rel 5 MG TABLET PO PRN (09:47)
[2020-05-07] MEDS ORDERED: Vancomycin 1,750 MG in 0.9 % Sodium Chloride 250 ML IVPB SCH (15:00)
[2020-05-07] MEDS ORDERED: Vancomycin 1,750 MG/517.5 ML IV.SOLN IVPB ONE (15:18)
[2020-05-07] MEDS: Cefepime HCl 2,000 MG in Water for inj. (sterile) 20 ML IVP SCH (16:44)
[2020-05-07 23:44] LABS: ABG Base Excess 4 mEq/L (-2 to 3); ABG HCO3 29 mEq/L (21-27); ABG Oxygen Saturation 95 % (95-98); ABG PCO2 43 mmHg (35-45); ABG PH 7.44 pH Units (7.32-7.45); ABG PO2 73 mmHg (85-104); ABG TCO2 30 mEq/L (20-26)
[2020-05-08] MEDS: Cefepime HCl 2,000 MG in Water for inj. (sterile) 20 ML IVP SCH ×3 (00:41→19:26)
[2020-05-08] MEDS: Vancomycin 1,500 MG/265 ML IV.SOLN IVPB SCH ×2 (05:34→19:25)
[2020-05-08] MEDS: *HR* Heparin 5,000 UNIT/ML VIAL SQ SCH ×2 (05:35→19:21)
[2020-05-08 05:38] LABS: Basophils % 0.3 %; Mean Corpuscular Hemoglobin 29.2 pg (28.0-33.3); Red Cell Distribution Width 12.3 % (11.5-14.5)
[2020-05-08 05:40] LABS: Eosinophils # 0.3 K/mcL (0.0-0.6); Eosinophils % 2.5 %; Hematocrit 33.2 % (37.5-50.1); Hemoglobin 10.9 g/dL (12.9-16.9); Immature Granulocytes % 0.5 % (0-4); Immature Platelets 8.2 % (1.1-6.1); Lymphocytes # 1.8 K/mcL (0.6-4.6); Lymphocytes % 14.7 %; Mean Corpuscular HGB Conc 32.8 g/dL (31.6-35.5); Monocytes # 2.7 K/mcL (0.0-1.3); Monocytes % 22.2 %; Platelet Count 142 K/mcL (140-400); Red Blood Count 3.73 M/mcL (4.19-5.50); Segmented Neutrophils % 59.8 %; White Blood Count 12.3 K/mcL (4.3-11.1)
[2020-05-08 05:41] LABS: Neutrophils # 7.4 K/mcL (1.6-8.9)
[2020-05-08 07:11] LABS: BUN/Creatinine Ratio 22 (6-26); Blood Urea Nitrogen 16 mg/dL (8-23); Calcium 8.5 mg/dL (8.6-10.3); Carbon Dioxide 28 mEq/L (23-29); Chloride 96 mEq/L (98-107); Glucose 102 mg/dL (70-105); Osmolality,Calculated 277 (280-300); Potassium 3.6 mEq/L (3.5-5.1); Sodium 133 mEq/L (136-145); eGFR For African Americans > 60 (> 60); eGFR For Non-African Americans > 60 (> 60)
[2020-05-08] MEDS: levETIRAcetam 250 MG TABLET PO SCH ×2 (08:17→23:31)
[2020-05-08] MEDS: PHENobarbitaL 32.4 MG TABLET PO SCH ×5 (08:18→23:32)
[2020-05-08] MEDS: Furosemide 40 MG TABLET PO SCH (08:19)
[2020-05-09] MEDS ORDERED: Cefepime HCl 2,000 MG in Water for inj. (sterile) 20 ML IVP SCH (03:00)
[2020-05-09 05:34] LABS: Basophils % 0.3 %; Eosinophils # 0.5 K/mcL (0.0-0.6); Eosinophils % 4.8 %; Hematocrit 30.4 % (37.5-50.1); Immature Granulocytes % 0.6 % (0-4); Lymphocytes # 1.2 K/mcL (0.6-4.6); Lymphocytes % 12.2 %; Mean Corpuscular HGB Conc 33.2 g/dL (31.6-35.5); Mean Corpuscular Hemoglobin 29.3 pg (28.0-33.3); Mean Corpuscular Volume 88.1 fL (83.0-100.0); Mean Platelet Volume 11.2 fL (9.4-12.4); Monocytes # 2.2 K/mcL (0.0-1.3); Monocytes % 22.3 %; Neutrophils # 5.9 K/mcL (1.6-8.9); Platelet Count 168 K/mcL (140-400); Red Blood Count 3.45 M/mcL (4.19-5.50); Red Cell Distribution Width 12.3 % (11.5-14.5); Segmented Neutrophils % 59.8 %; White Blood Count 9.8 K/mcL (4.3-11.1)
[2020-05-09 05:41] LABS: Hemoglobin 10.1 g/dL (12.9-16.9)
[2020-05-09 05:56] LABS: BUN/Creatinine Ratio 26 (6-26); Blood Urea Nitrogen 19 mg/dL (8-23); Calcium 8.4 mg/dL (8.6-10.3); Carbon Dioxide 31 mEq/L (23-29); Chloride 95 mEq/L (98-107); Glucose 95 mg/dL (70-105); Osmolality,Calculated 276 (280-300); Potassium 3.5 mEq/L (3.5-5.1); Sodium 132 mEq/L (136-145); eGFR For African Americans > 60 (> 60); eGFR For Non-African Americans > 60 (> 60)
[2020-05-09] MEDS: Vancomycin 1,500 MG/265 ML IV.SOLN IVPB SCH (06:05)
[2020-05-09] MEDS: *HR* Heparin 5,000 UNIT/ML VIAL SQ SCH (06:05)
[2020-05-09] MEDS: levETIRAcetam 250 MG TABLET PO SCH (08:02)
[2020-05-09] MEDS: PHENobarbitaL 32.4 MG TABLET PO SCH ×2 (08:02→12:17)
[2020-05-09] MEDS: Furosemide 40 MG TABLET PO SCH (08:03)
[2020-05-09 14:39] VITALS: BP 128/74
== END 2020-05-09 15:38 | DRG 480 ==
LOC: EMEROOARM 05:41 → CDU 05:41 → SUATTDRO 11:14 → 3NENU 16:48
PROVIDERS: ADMIT Internal Medicine; ATTEND Family Medicine

== ENCOUNTER 2020-06-07 22:44 | Observation (INO) ==
[2020-06-07] MEDS ORDERED: GI Cocktail 40 ML EACH PO ONE (22:55)
[2020-06-07 23:05] LABS: Basophils % 0.2 %; Eosinophils # 0.4 K/mcL (0.0-0.6); Eosinophils % 2.7 %; Hematocrit 39.6 % (37.5-50.1); Hemoglobin 12.9 g/dL (12.9-16.9); Immature Granulocytes % 0.3 % (0-4); Lymphocytes # 1.4 K/mcL (0.6-4.6); Lymphocytes % 9.9 %; Mean Corpuscular HGB Conc 32.6 g/dL (31.6-35.5); Mean Corpuscular Hemoglobin 29.1 pg (28.0-33.3); Mean Corpuscular Volume 89.4 fL (83.0-100.0); Monocytes # 2.1 K/mcL (0.0-1.3); Monocytes % 14.8 %; Neutrophils # 10.3 K/mcL (1.6-8.9); Platelet Count 224 K/mcL (140-400); Red Blood Count 4.43 M/mcL (4.19-5.50); Red Cell Distribution Width 12.5 % (11.5-14.5); Segmented Neutrophils % 72.1 %; White Blood Count 14.3 K/mcL (4.3-11.1)
[2020-06-07 23:15] LABS: INR 1.2; Prothrombin Time 13.8 Seconds (9.4-12.1)
[2020-06-07 23:18] LABS: Activated Partial Thrombo Time 38.5 Seconds (26.0-36.0)
[2020-06-07 23:30] LABS: BUN/Creatinine Ratio 22 (6-26); Blood Urea Nitrogen 15 mg/dL (8-23); Carbon Dioxide 28 mEq/L (23-29); Chloride 100 mEq/L (98-107); Glucose 115 mg/dL (70-105); Lipase 33 Units/L (11-82); Osmolality,Calculated 286 (280-300); Sodium 137 mEq/L (136-145); eGFR For African Americans > 60 (> 60); eGFR For Non-African Americans > 60 (> 60)
[2020-06-07 23:31] LABS: Troponin I < 0.03 ng/mL (< 0.04)
[2020-06-08] MEDS ORDERED: Naloxone 0.4 MG/ML INJ IVP PRN (00:33)
[2020-06-08] MEDS ORDERED: *HR* OxyCODONE Immed Rel 5 MG TABLET PO PRN (00:43)
[2020-06-08 05:41] LABS: Basophils % 0.2 %; Eosinophils # 0.4 K/mcL (0.0-0.6); Eosinophils % 4.4 %; Hematocrit 36.8 % (37.5-50.1); Hemoglobin 11.9 g/dL (12.9-16.9); Immature Granulocytes % 0.2 % (0-4); Lymphocytes # 1.6 K/mcL (0.6-4.6); Lymphocytes % 20.3 %; Mean Corpuscular HGB Conc 32.3 g/dL (31.6-35.5); Mean Corpuscular Hemoglobin 29.2 pg (28.0-33.3); Mean Corpuscular Volume 90.4 fL (83.0-100.0); Monocytes # 1.3 K/mcL (0.0-1.3); Monocytes % 15.7 %; Neutrophils # 4.8 K/mcL (1.6-8.9); Platelet Count 180 K/mcL (140-400); Red Blood Count 4.07 M/mcL (4.19-5.50); Red Cell Distribution Width 12.6 % (11.5-14.5); Segmented Neutrophils % 59.2 %
[2020-06-08 05:59] LABS: BUN/Creatinine Ratio 23 (6-26); Blood Urea Nitrogen 15 mg/dL (8-23); Calcium 8.7 mg/dL (8.6-10.3); Carbon Dioxide 30 mEq/L (23-29); Chloride 99 mEq/L (98-107); Glucose 98 mg/dL (70-105); Osmolality,Calculated 281 (280-300); Potassium 3.9 mEq/L (3.5-5.1); Sodium 135 mEq/L (136-145); eGFR For African Americans > 60 (> 60); eGFR For Non-African Americans > 60 (> 60)
[2020-06-08] MEDS ORDERED: Regadenoson 0.4 MG/5 ML SYRINGE IVP ONE (06:00)
[2020-06-08] MEDS ORDERED: *HR* Heparin 5,000 UNIT/ML VIAL SQ SCH (06:00)
[2020-06-08] MEDS ORDERED: levETIRAcetam 250 MG TABLET PO SCH ×2 (09:00→21:00)
[2020-06-08] MEDS ORDERED: Furosemide 40 MG TABLET PO SCH (09:00)
[2020-06-08] MEDS ORDERED: *HR* Enoxaparin 40 MG/0.4 ML SYRINGE SQ SCH (09:00)
[2020-06-08] MEDS: PHENobarbitaL 32.4 MG TABLET PO SCH ×3 (09:39→17:26)
[2020-06-08 12:25] VITALS: BP 106/68
== END 2020-06-08 17:52 ==
LOC: CDU 22:44 → EMEROOARM 22:44 → SUATTDRO 06-08 00:30 → CDU 06-08 01:16
PROVIDERS: ADMIT Student in an Organized Health Care Education/Training Program; ATTEND Family Medicine

== ENCOUNTER 2020-10-03 10:50 | Observation (INO) ==
[2020-10-03 11:58] LABS: Basophils # 0.1 K/mcL (0.0-0.2); Basophils % 0.7 %; Eosinophils # 0.4 K/mcL (0.0-0.6); Eosinophils % 5.4 %; Hematocrit 37.6 % (37.5-50.1); Hemoglobin 12.4 g/dL (12.9-16.9); Immature Granulocytes % 0.4 % (0-4); Lymphocytes # 1.5 K/mcL (0.6-4.6); Lymphocytes % 22.8 %; Mean Corpuscular Hemoglobin 29.8 pg (28.0-33.3); Mean Corpuscular Volume 90.4 fL (83.0-100.0); Mean Platelet Volume 10.3 fL (9.4-12.4); Monocytes # 1.1 K/mcL (0.0-1.3); Monocytes % 16.4 %; Neutrophils # 3.6 K/mcL (1.6-8.9); Platelet Count 220 K/mcL (140-400); Red Blood Count 4.16 M/mcL (4.19-5.50); Red Cell Distribution Width 12.9 % (11.5-14.5); Segmented Neutrophils % 54.3 %; White Blood Count 6.7 K/mcL (4.3-11.1)
[2020-10-03 12:21] LABS: Alanine Aminotransferase 14 Units/L (7-52); Albumin/Globulin Ratio 1.3 (1.1-2.2); Alkaline Phosphatase 70 Units/L (34-104); Aspartate Amino Transferase 18 Units/L (13-39); BUN/Creatinine Ratio 19 (6-26); Bilirubin,Indirect 0.3 mg/dL (0.0-1.0); Bilirubin,Total 0.3 mg/dL (0.3-1.0); Blood Urea Nitrogen 15 mg/dL (8-23); Calcium 8.7 mg/dL (8.6-10.3); Carbon Dioxide 31 mEq/L (23-29); Chloride 102 mEq/L (98-107); Glucose 94 mg/dL (70-105); Osmolality,Calculated 289 (280-300); Phenytoin (Dilantin) 16.4 mcg/mL (10.0-20.0); Potassium 4.1 mEq/L (3.5-5.1); Sodium 139 mEq/L (136-145); Troponin I < 0.03 ng/mL (< 0.04); eGFR For African Americans > 60 (> 60); eGFR For Non-African Americans > 60 (> 60)
[2020-10-03 12:57] LABS: Bilirubin,Urine Negative (Negative); Blood,Urine Negative (Negative); Clarity,Urine Clear (Clear); Color,Urine Colorless (Yellow); Glucose,Urine (UA) Normal (Normal); Ketones,Urine Negative (Negative); Leukocyte Esterase,Urine Negative (Negative); Nitrite,Urine Negative (Negative); Protein,Urine Negative (Neg-Trace); Specific Gravity,Urine 1.006 (1.010-1.025); Urobilinogen,Urine Normal (Normal)
[2020-10-03] MEDS ORDERED: Naloxone 0.4 MG/ML INJ IVP PRN (13:20)
[2020-10-03] MEDS ORDERED: Isovue-370 500 ML BOTTLE IVP ONE (15:13)
[2020-10-03] MEDS ORDERED: Aspirin Enteric Coated 81 MG Tablet PO SCH (15:15)
[2020-10-03] MEDS ORDERED: DILANTIN 100 MG PO SCH ×2 (17:00→21:00)
[2020-10-03] MEDS: PHENobarbitaL 32.4 MG TABLET PO SCH ×2 (17:59→20:37)
[2020-10-03 19:07] LABS: Vitamin B12 262 pg/mL (250-1100)
[2020-10-03 19:50] LABS: Procalcitonin < 0.02 ng/mL (0.00-0.15)
[2020-10-03 20:37] VITALS: BP 117/69
[2020-10-03] MEDS ORDERED: levETIRAcetam 250 MG TABLET PO SCH (21:00)
[2020-10-03] MEDS ORDERED: QUEtiapine Fumarate 25 MG TABLET PO SCH (21:00)
[2020-10-04] MEDS ORDERED: Furosemide 40 MG TABLET PO SCH (09:00)
[2020-10-04] MEDS ORDERED: Multivit/Ca/Min/Fe/FA 1 TAB TABLET PO SCH (09:00)
[2020-10-04] MEDS ORDERED: levETIRAcetam 250 MG TABLET PO SCH (09:00)
[2020-10-04] MEDS ORDERED: lisinopriL 5 MG TABLET PO SCH (09:00)
== END 2020-10-03 23:37 | disposition short-term general hospital (02) ==
LOC: EMEROOARM 10:50 → 3BNU 10:50
PROVIDERS: ADMIT Internal Medicine; ATTEND Internal Medicine

== ENCOUNTER 2021-06-27 16:27 | Inpatient (IN) ==
[2021-06-27 16:57] LABS: Basophils # 0.1 K/mcL (0.0-0.2); Basophils % 0.4 %; Eosinophils # 0.5 K/mcL (0.0-0.6); Hematocrit 36.7 % (37.5-50.1); Hemoglobin 12.2 g/dL (12.9-16.9); Immature Granulocytes % 0.3 % (0-4); Lymphocytes # 1.1 K/mcL (0.6-4.6); Lymphocytes % 10.1 %; Mean Corpuscular HGB Conc 33.2 g/dL (31.6-35.5); Mean Corpuscular Hemoglobin 29.4 pg (28.0-33.3); Mean Corpuscular Volume 88.4 fL (83.0-100.0); Mean Platelet Volume 10.1 fL (9.4-12.4); Monocytes # 2.2 K/mcL (0.0-1.3); Monocytes % 19.6 %; Neutrophils # 7.4 K/mcL (1.6-8.9); Platelet Count 237 K/mcL (140-400); Red Blood Count 4.15 M/mcL (4.19-5.50); Red Cell Distribution Width 12.5 % (11.5-14.5); Segmented Neutrophils % 65.6 %; White Blood Count 11.3 K/mcL (4.3-11.1)
[2021-06-27 17:06] LABS: INR 1.6; Prothrombin Time 17.7 Seconds (9.4-12.1)
[2021-06-27 17:12] LABS: VBG HCO3 26 mEq/L (21-27); VBG PCO2 40 mmHg (41-51); VBG PH 7.43 pH Units (7.32-7.42); VBG PO2 54 mmHg (25-50)
[2021-06-27 17:27] LABS: Alanine Aminotransferase 41 Units/L (7-52); Albumin 3.5 g/dL (3.5-5.7); Albumin/Globulin Ratio 0.9 (1.1-2.2); Alkaline Phosphatase 67 Units/L (34-104); Aspartate Amino Transferase 54 Units/L (13-39); BUN/Creatinine Ratio 15 (6-26); Bilirubin,Direct 0.1 mg/dL (0.0-0.2); Bilirubin,Indirect 0.4 mg/dL (0.0-1.0); Bilirubin,Total 0.5 mg/dL (0.3-1.0); Blood Urea Nitrogen 13 mg/dL (8-23); Calcium 8.2 mg/dL (8.6-10.3); Carbon Dioxide 26 mEq/L (23-29); Chloride 99 mEq/L (98-107); Globulin 3.8 g/dL (2.4-3.5); Glucose 165 mg/dL (70-105); Osmolality,Calculated 278 (280-300); Potassium 3.8 mEq/L (3.5-5.1); Sodium 132 mEq/L (136-145); Total Protein 7.3 g/dL (6.4-8.9); Troponin I 0.08 ng/mL (< 0.04); eGFR For African Americans > 60 (> 60); eGFR For Non-African Americans > 60 (> 60)
[2021-06-27] MEDS ORDERED: Piperacillin/Tazobactam 3.375 GM in 0.9 % Sodium Chloride Mini Bag 100 ML IVPB ONE (17:42)
[2021-06-27] MEDS ORDERED: Vancomycin 1,750 MG/517.5 ML IV.SOLN IVPB ONE (17:42)
[2021-06-27] MEDS ORDERED: Isovue-370 500 ML BOTTLE IVP ONE (17:42)
[2021-06-27 18:01] LABS: Adenovirus Not Detected (Not Detect); Bordetella Pertussis Not Detected (Not Detect); Chlamydophila pneumoniae Not Detected (Not Detect); Coronavirus 229E Not Detected (Not Detect); Coronavirus HKU1 Not Detected (Not Detect); Coronavirus NL63 Not Detected (Not Detect); Coronavirus OC43 Not Detected (Not Detect); Human Metapneumovirus Not Detected (Not Detect); Human Rhinovirus/Enterovirus Not Detected (Not Detect); Influenza A Subtype 2009 H1 Not Detected (Not Detect); Influenza B Not Detected (Not Detect); Mycoplasma pneumoniae Not Detected (Not Detect); Parainfluenza Virus 1 Not Detected (Not Detect); Parainfluenza Virus 2 Not Detected (Not Detect); Parainfluenza Virus 3 Not Detected (Not Detect); Parainfluenza Virus 4 Not Detected (Not Detect); Respiratory Syncytial Virus Not Detected (Not Detect); SARS-CoV-2 Not Detected (Not Detect)
[2021-06-27] MEDS ORDERED: Acetaminophen 325 MG TABLET PO ONE (18:29)
[2021-06-27] MEDS ORDERED: Naloxone 0.4 MG/ML INJ IVP PRN (20:32)
[2021-06-27] MEDS ORDERED: Ondansetron ODT 4 MG TAB.RAPDIS SL PRN (20:32)
[2021-06-27] MEDS ORDERED: Sennosides/Docusate Sodium TABLET PO PRN (20:34)
[2021-06-27] MEDS ORDERED: Furosemide 40 MG/4 ML VIAL IVP ONE (21:02)
[2021-06-27] MEDS ORDERED: Ipratropium/Albuterol Neb 3 ML IH PRN (21:17)
[2021-06-27] MEDS ORDERED: methylPREDNISolone 125 MG/2 ML VIAL IVP ONE (22:02)
[2021-06-27] MEDS: *HR* Heparin 5,000 UNIT/ML VIAL SQ SCH (22:47)
[2021-06-27] MEDS: Melatonin 3 MG TABLET PO PRN (22:48)
[2021-06-27] MEDS: PHENobarbitaL 32.4 MG TABLET PO SCH (22:48)
[2021-06-27 22:51] LABS: Magnesium 2.1 mg/dL (1.6-2.6)
[2021-06-27 23:23] LABS: Bilirubin,Urine Negative (Negative); Blood,Urine Negative (Negative); Clarity,Urine Clear (Clear); Color,Urine Light-Yellow (Yellow); Glucose,Urine (UA) Normal (Normal); Ketones,Urine Negative (Negative); Leukocyte Esterase,Urine Negative (Negative); Nitrite,Urine Negative (Negative); Protein,Urine Trace mg/dL (Neg-Trace); Specific Gravity,Urine > 1.030 (1.010-1.025); Urobilinogen,Urine Normal (Normal)
[2021-06-28] MEDS: Ampicillin/Sulbactam 1,500 MG in 0.9 % Sodium Chloride Mini Bag 100 ML IVPB SCH ×5 (00:51→23:05)
[2021-06-28 01:42] LABS: Basophils # 0.1 K/mcL (0.0-0.2); Basophils % 0.5 %; Eosinophils # 0.6 K/mcL (0.0-0.6); Eosinophils % 5.8 %; Hemoglobin 11.8 g/dL (12.9-16.9); Immature Granulocytes % 0.4 % (0-4); Lymphocytes # 0.6 K/mcL (0.6-4.6); Lymphocytes % 6.3 %; Mean Corpuscular HGB Conc 32.8 g/dL (31.6-35.5); Mean Corpuscular Hemoglobin 29.5 pg (28.0-33.3); Mean Platelet Volume 10.3 fL (9.4-12.4); Monocytes # 1.4 K/mcL (0.0-1.3); Monocytes % 13.9 %; Neutrophils # 7.3 K/mcL (1.6-8.9); Platelet Count 214 K/mcL (140-400); Red Cell Distribution Width 12.5 % (11.5-14.5); Segmented Neutrophils % 73.1 %; White Blood Count 9.9 K/mcL (4.3-11.1)
[2021-06-28 02:01] LABS: BUN/Creatinine Ratio 16 (6-26); Blood Urea Nitrogen 13 mg/dL (8-23); Calcium 8.1 mg/dL (8.6-10.3); Carbon Dioxide 27 mEq/L (23-29); Chloride 100 mEq/L (98-107); Chol/HDL Ratio 4.6 (0-4.9); Cholesterol 151 mg/dL (< 200); Glucose 128 mg/dL (70-105); HDL Cholesterol 33 mg/dL (40-59); LDL Cholesterol,Calculated 98 mg/dL (< 100); Osmolality,Calculated 284 (280-300); Potassium 3.8 mEq/L (3.5-5.1); Sodium 136 mEq/L (136-145); Triglycerides 102 mg/dL (< 150); eGFR For African Americans > 60 (> 60); eGFR For Non-African Americans > 60 (> 60)
[2021-06-28 05:58] LABS: Estimated Average Glucose 111 mg/dl; Hemoglobin A1C 5.5 %
[2021-06-28] MEDS: *HR* Heparin 5,000 UNIT/ML VIAL SQ SCH ×2 (06:55→18:04)
[2021-06-28] MEDS: levETIRAcetam 250 MG TABLET PO SCH ×2 (09:41→20:27)
[2021-06-28] MEDS: Azithromycin 250 MG TABLET PO SCH (09:41)
[2021-06-28] MEDS: PHENobarbitaL 32.4 MG TABLET PO SCH ×4 (09:42→20:31)
[2021-06-28] MEDS ORDERED: *HR* Dextrose 50 % in Water (Syg) 50 ML SYRINGE IVP PRN (12:20)
[2021-06-28] MEDS: D5% in 0.9% NACL 1,000 ML IVC SCH (13:12)
[2021-06-29] MEDS: D5% in 0.9% NACL 1,000 ML IVC SCH (03:59)
[2021-06-29] MEDS: Ampicillin/Sulbactam 1,500 MG in 0.9 % Sodium Chloride Mini Bag 100 ML IVPB SCH ×3 (05:09→16:46)
[2021-06-29] MEDS: *HR* Heparin 5,000 UNIT/ML VIAL SQ SCH ×2 (05:09→16:48)
[2021-06-29] MEDS ORDERED: Perflutren Lipid Microsphere 1.3 ML in 0.9 % Sodium Chloride 8.7 ML IVP PRN (09:05)
[2021-06-29 10:17] LABS: Basophils % 0.4 %; Eosinophils # 0.9 K/mcL (0.0-0.6); Eosinophils % 10.5 %; Hematocrit 31.9 % (37.5-50.1); Hemoglobin 10.6 g/dL (12.9-16.9); Immature Granulocytes % 0.2 % (0-4); Lymphocytes % 12.3 %; Mean Corpuscular HGB Conc 33.2 g/dL (31.6-35.5); Mean Corpuscular Hemoglobin 30.1 pg (28.0-33.3); Mean Corpuscular Volume 90.6 fL (83.0-100.0); Mean Platelet Volume 10.3 fL (9.4-12.4); Monocytes # 1.4 K/mcL (0.0-1.3); Monocytes % 17.4 %; Neutrophils # 4.8 K/mcL (1.6-8.9); Platelet Count 251 K/mcL (140-400); Red Blood Count 3.52 M/mcL (4.19-5.50); Red Cell Distribution Width 12.5 % (11.5-14.5); Segmented Neutrophils % 59.2 %; White Blood Count 8.2 K/mcL (4.3-11.1)
[2021-06-29] MEDS: Azithromycin 250 MG TABLET PO SCH (10:17)
[2021-06-29] MEDS: levETIRAcetam 250 MG TABLET PO SCH ×2 (10:17→20:56)
[2021-06-29] MEDS: PHENobarbitaL 32.4 MG TABLET PO SCH ×4 (10:17→20:55)
[2021-06-29 10:37] LABS: BUN/Creatinine Ratio 16 (6-26); Blood Urea Nitrogen 12 mg/dL (8-23); Calcium 7.9 mg/dL (8.6-10.3); Carbon Dioxide 29 mEq/L (23-29); Chloride 102 mEq/L (98-107); Glucose 123 mg/dL (70-105); Magnesium 2.1 mg/dL (1.6-2.6); Osmolality,Calculated 285 (280-300); Potassium 3.8 mEq/L (3.5-5.1); Sodium 137 mEq/L (136-145); eGFR For African Americans > 60 (> 60); eGFR For Non-African Americans > 60 (> 60)
[2021-06-29] MEDS: Melatonin 3 MG TABLET PO PRN (21:15)
[2021-06-29] MEDS: Acetaminophen 325 MG TABLET PO PRN (21:15)
[2021-06-30] MEDS: Ampicillin/Sulbactam 1,500 MG in 0.9 % Sodium Chloride Mini Bag 100 ML IVPB SCH ×5 (00:17→23:45)
[2021-06-30] MEDS: D5% in 0.9% NACL 1,000 ML IVC SCH (00:23)
[2021-06-30] MEDS: *HR* Heparin 5,000 UNIT/ML VIAL SQ SCH ×2 (05:36→17:10)
[2021-06-30 06:45] LABS: Basophils % 0.4 %; Eosinophils # 0.9 K/mcL (0.0-0.6); Eosinophils % 10.9 %; Hematocrit 33.3 % (37.5-50.1); Hemoglobin 10.7 g/dL (12.9-16.9); Immature Granulocytes % 0.2 % (0-4); Lymphocytes # 1.1 K/mcL (0.6-4.6); Lymphocytes % 12.5 %; Mean Corpuscular HGB Conc 32.1 g/dL (31.6-35.5); Mean Corpuscular Hemoglobin 29.9 pg (28.0-33.3); Mean Platelet Volume 10.1 fL (9.4-12.4); Monocytes # 1.5 K/mcL (0.0-1.3); Neutrophils # 4.9 K/mcL (1.6-8.9); Platelet Count 264 K/mcL (140-400); Red Blood Count 3.58 M/mcL (4.19-5.50); Red Cell Distribution Width 12.5 % (11.5-14.5); White Blood Count 8.5 K/mcL (4.3-11.1)
[2021-06-30 07:00] LABS: BUN/Creatinine Ratio 17 (6-26); Blood Urea Nitrogen 13 mg/dL (8-23); Calcium 8.1 mg/dL (8.6-10.3); Carbon Dioxide 30 mEq/L (23-29); Chloride 103 mEq/L (98-107); Glucose 110 mg/dL (70-105); Osmolality,Calculated 287 (280-300); Sodium 138 mEq/L (136-145); eGFR For African Americans > 60 (> 60); eGFR For Non-African Americans > 60 (> 60)
[2021-06-30] MEDS: levETIRAcetam 250 MG TABLET PO SCH ×2 (10:29→20:33)
[2021-06-30] MEDS: Azithromycin 250 MG TABLET PO SCH (10:29)
[2021-06-30] MEDS: PHENobarbitaL 32.4 MG TABLET PO SCH ×4 (10:31→20:31)
[2021-06-30] MEDS: Acetaminophen 325 MG TABLET PO PRN (20:52)
[2021-07-01] MEDS: D5% in 0.9% NACL 1,000 ML IVC SCH (05:41)
[2021-07-01] MEDS: *HR* Heparin 5,000 UNIT/ML VIAL SQ SCH ×2 (05:42→16:42)
[2021-07-01] MEDS: Ampicillin/Sulbactam 1,500 MG in 0.9 % Sodium Chloride Mini Bag 100 ML IVPB SCH ×3 (08:50→16:39)
[2021-07-01] MEDS: PHENobarbitaL 32.4 MG TABLET PO SCH ×3 (08:51→16:40)
[2021-07-01] MEDS: Acetaminophen 325 MG TABLET PO PRN ×2 (08:52→21:17)
[2021-07-01] MEDS: levETIRAcetam 250 MG TABLET PO SCH ×2 (08:53→21:16)
[2021-07-01] MEDS: Azithromycin 250 MG TABLET PO SCH (08:55)
[2021-07-01 18:59] LABS: Basophils % 0.4 %; Eosinophils # 1.1 K/mcL (0.0-0.6); Eosinophils % 11.7 %; Hematocrit 35.4 % (37.5-50.1); Hemoglobin 11.1 g/dL (12.9-16.9); Immature Granulocytes % 0.4 % (0-4); Lymphocytes % 10.6 %; Mean Corpuscular HGB Conc 31.4 g/dL (31.6-35.5); Mean Corpuscular Hemoglobin 29.1 pg (28.0-33.3); Mean Corpuscular Volume 92.7 fL (83.0-100.0); Mean Platelet Volume 9.8 fL (9.4-12.4); Monocytes # 1.5 K/mcL (0.0-1.3); Monocytes % 16.4 %; Neutrophils # 5.5 K/mcL (1.6-8.9); Platelet Count 325 K/mcL (140-400); Red Blood Count 3.82 M/mcL (4.19-5.50); Red Cell Distribution Width 12.6 % (11.5-14.5); Segmented Neutrophils % 60.5 %; White Blood Count 9.1 K/mcL (4.3-11.1)
[2021-07-01 19:16] LABS: BUN/Creatinine Ratio 16 (6-26); Blood Urea Nitrogen 10 mg/dL (8-23); Calcium 8.5 mg/dL (8.6-10.3); Carbon Dioxide 28 mEq/L (23-29); Chloride 103 mEq/L (98-107); Glucose 106 mg/dL (70-105); Osmolality,Calculated 283 (280-300); Potassium 3.9 mEq/L (3.5-5.1); Sodium 137 mEq/L (136-145); eGFR For African Americans > 60 (> 60); eGFR For Non-African Americans > 60 (> 60)
[2021-07-02] MEDS: Ampicillin/Sulbactam 1,500 MG in 0.9 % Sodium Chloride Mini Bag 100 ML IVPB SCH ×4 (00:17→17:06)
[2021-07-02] MEDS: PHENobarbitaL 32.4 MG TABLET PO SCH ×5 (04:37→21:38)
[2021-07-02] MEDS: *HR* Heparin 5,000 UNIT/ML VIAL SQ SCH ×2 (05:33→17:06)
[2021-07-02] MEDS ORDERED: Furosemide 40 MG/4 ML VIAL IVP SCH (09:00)
[2021-07-02 09:57] LABS: BUN/Creatinine Ratio 14 (6-26); Blood Urea Nitrogen 9 mg/dL (8-23); Calcium 8.4 mg/dL (8.6-10.3); Carbon Dioxide 31 mEq/L (23-29); Chloride 103 mEq/L (98-107); Glucose 103 mg/dL (70-105); Magnesium 2.1 mg/dL (1.6-2.6); Osmolality,Calculated 285 (280-300); Sodium 138 mEq/L (136-145); eGFR For African Americans > 60 (> 60); eGFR For Non-African Americans > 60 (> 60)
[2021-07-02] MEDS: Azithromycin 250 MG TABLET PO SCH (09:57)
[2021-07-02] MEDS: levETIRAcetam 250 MG TABLET PO SCH ×2 (09:58→21:35)
[2021-07-02] MEDS: Furosemide 40 MG/4 ML VIAL IVP SCH (21:34)
[2021-07-03] MEDS: Ampicillin/Sulbactam 1,500 MG in 0.9 % Sodium Chloride Mini Bag 100 ML IVPB SCH ×4 (00:58→16:52)
[2021-07-03] MEDS: *HR* Heparin 5,000 UNIT/ML VIAL SQ SCH ×2 (06:07→16:51)
[2021-07-03 07:30] LABS: BUN/Creatinine Ratio 16 (6-26); Blood Urea Nitrogen 11 mg/dL (8-23); Calcium 8.6 mg/dL (8.6-10.3); Carbon Dioxide 34 mEq/L (23-29); Chloride 99 mEq/L (98-107); Glucose 99 mg/dL (70-105); Osmolality,Calculated 287 (280-300); Potassium 3.7 mEq/L (3.5-5.1); Sodium 139 mEq/L (136-145); eGFR For African Americans > 60 (> 60); eGFR For Non-African Americans > 60 (> 60)
[2021-07-03] MEDS: D5% in 0.9% NACL 1,000 ML IVC SCH (08:21)
[2021-07-03] MEDS: levETIRAcetam 250 MG TABLET PO SCH ×2 (08:30→21:45)
[2021-07-03] MEDS: Furosemide 40 MG/4 ML VIAL IVP SCH ×2 (08:31→21:44)
[2021-07-03] MEDS: Azithromycin 250 MG TABLET PO SCH (08:31)
[2021-07-03] MEDS: PHENobarbitaL 32.4 MG TABLET PO SCH ×4 (08:33→21:45)
[2021-07-03] MEDS: Melatonin 3 MG TABLET PO PRN (21:45)
[2021-07-04] MEDS: Ampicillin/Sulbactam 1,500 MG in 0.9 % Sodium Chloride Mini Bag 100 ML IVPB SCH ×5 (00:24→23:34)
[2021-07-04] MEDS: *HR* Heparin 5,000 UNIT/ML VIAL SQ SCH ×2 (05:56→18:29)
[2021-07-04] MEDS: Furosemide 40 MG/4 ML VIAL IVP SCH ×2 (09:11→20:48)
[2021-07-04] MEDS: Azithromycin 250 MG TABLET PO SCH (09:12)
[2021-07-04] MEDS: PHENobarbitaL 32.4 MG TABLET PO SCH ×4 (09:13→20:47)
[2021-07-04] MEDS: levETIRAcetam 250 MG TABLET PO SCH ×2 (09:13→20:47)
[2021-07-04 09:14] LABS: Basophils # 0.1 K/mcL (0.0-0.2); Basophils % 0.8 %; Eosinophils # 0.9 K/mcL (0.0-0.6); Eosinophils % 11.5 %; Hematocrit 35.6 % (37.5-50.1); Hemoglobin 11.4 g/dL (12.9-16.9); Immature Granulocytes % 0.5 % (0-4); Lymphocytes # 1.2 K/mcL (0.6-4.6); Lymphocytes % 14.7 %; Mean Corpuscular Hemoglobin 29.2 pg (28.0-33.3); Mean Platelet Volume 9.8 fL (9.4-12.4); Monocytes # 1.4 K/mcL (0.0-1.3); Monocytes % 17.3 %; Neutrophils # 4.3 K/mcL (1.6-8.9); Platelet Count 399 K/mcL (140-400); Red Blood Count 3.91 M/mcL (4.19-5.50); Red Cell Distribution Width 12.3 % (11.5-14.5); Segmented Neutrophils % 55.2 %; White Blood Count 7.8 K/mcL (4.3-11.1)
[2021-07-04 09:34] LABS: BUN/Creatinine Ratio 17 (6-26); Blood Urea Nitrogen 11 mg/dL (8-23); Calcium 8.5 mg/dL (8.6-10.3); Carbon Dioxide 34 mEq/L (23-29); Chloride 98 mEq/L (98-107); Glucose 86 mg/dL (70-105); Magnesium 1.9 mg/dL (1.6-2.6); Osmolality,Calculated 287 (280-300); Potassium 3.9 mEq/L (3.5-5.1); Sodium 139 mEq/L (136-145); eGFR For African Americans > 60 (> 60); eGFR For Non-African Americans > 60 (> 60)
[2021-07-04] MEDS: Acetaminophen 325 MG TABLET PO PRN (23:34)
[2021-07-05] MEDS: PHENobarbitaL 32.4 MG TABLET PO SCH ×5 (00:12→20:49)
[2021-07-05] MEDS: levETIRAcetam 250 MG TABLET PO SCH ×3 (00:12→20:48)
[2021-07-05 03:17] LABS: Basophils # 0.1 K/mcL (0.0-0.2); Basophils % 0.8 %; Eosinophils # 0.9 K/mcL (0.0-0.6); Eosinophils % 10.5 %; Hematocrit 35.1 % (37.5-50.1); Hemoglobin 11.7 g/dL (12.9-16.9); Immature Granulocytes % 0.6 % (0-4); Lymphocytes # 1.5 K/mcL (0.6-4.6); Lymphocytes % 16.4 %; Mean Corpuscular HGB Conc 33.3 g/dL (31.6-35.5); Mean Corpuscular Hemoglobin 30.1 pg (28.0-33.3); Mean Corpuscular Volume 90.2 fL (83.0-100.0); Mean Platelet Volume 9.5 fL (9.4-12.4); Monocytes # 1.5 K/mcL (0.0-1.3); Monocytes % 17.2 %; Neutrophils # 4.9 K/mcL (1.6-8.9); Platelet Count 410 K/mcL (140-400); Red Blood Count 3.89 M/mcL (4.19-5.50); Red Cell Distribution Width 12.2 % (11.5-14.5); Segmented Neutrophils % 54.5 %
[2021-07-05 03:55] LABS: BUN/Creatinine Ratio 21 (6-26); Blood Urea Nitrogen 16 mg/dL (8-23); Calcium 8.7 mg/dL (8.6-10.3); Carbon Dioxide 34 mEq/L (23-29); Chloride 96 mEq/L (98-107); Glucose 97 mg/dL (70-105); Osmolality,Calculated 289 (280-300); Potassium 3.5 mEq/L (3.5-5.1); Sodium 139 mEq/L (136-145); eGFR For African Americans > 60 (> 60); eGFR For Non-African Americans > 60 (> 60)
[2021-07-05] MEDS: *HR* Heparin 5,000 UNIT/ML VIAL SQ SCH ×2 (04:37→16:35)
[2021-07-05] MEDS: Ampicillin/Sulbactam 1,500 MG in 0.9 % Sodium Chloride Mini Bag 100 ML IVPB SCH ×3 (04:38→17:09)
[2021-07-05] MEDS: Azithromycin 250 MG TABLET PO SCH (07:35)
[2021-07-05] MEDS: Furosemide 40 MG/4 ML VIAL IVP SCH ×2 (09:16→20:47)
[2021-07-05] MEDS: Acetaminophen 325 MG TABLET PO PRN (15:45)
[2021-07-06] MEDS: Ampicillin/Sulbactam 1,500 MG in 0.9 % Sodium Chloride Mini Bag 100 ML IVPB SCH ×3 (00:37→14:10)
[2021-07-06] MEDS: *HR* Heparin 5,000 UNIT/ML VIAL SQ SCH (05:18)
[2021-07-06 07:24] VITALS: BP 128/76; PULSE 72; TEMP 98; O2SAT 92
[2021-07-06 07:40] LABS: Hematocrit 36.1 % (37.5-50.1); Mean Corpuscular HGB Conc 33.2 g/dL (31.6-35.5); Mean Corpuscular Volume 90.3 fL (83.0-100.0); Mean Platelet Volume 9.6 fL (9.4-12.4); Platelet Count 440 K/mcL (140-400); Segmented Neutrophils % 62.5 %; White Blood Count 8.5 K/mcL (4.3-11.1)
[2021-07-06 07:41] LABS: Basophils # 0.1 K/mcL (0.0-0.2); Basophils % 0.9 %; Eosinophils # 0.7 K/mcL (0.0-0.6); Eosinophils % 8.2 %; Immature Granulocytes % 0.6 % (0-4); Lymphocytes # 1.1 K/mcL (0.6-4.6); Lymphocytes % 12.8 %; Monocytes # 1.3 K/mcL (0.0-1.3); Neutrophils # 5.3 K/mcL (1.6-8.9)
[2021-07-06 07:57] LABS: BUN/Creatinine Ratio 22 (6-26); Blood Urea Nitrogen 17 mg/dL (8-23); Calcium 8.9 mg/dL (8.6-10.3); Carbon Dioxide 36 mEq/L (23-29); Chloride 96 mEq/L (98-107); Glucose 98 mg/dL (70-105); Osmolality,Calculated 296 (280-300); Potassium 3.7 mEq/L (3.5-5.1); Sodium 142 mEq/L (136-145); eGFR For African Americans > 60 (> 60); eGFR For Non-African Americans > 60 (> 60)
[2021-07-06] MEDS: levETIRAcetam 250 MG TABLET PO SCH (08:59)
[2021-07-06] MEDS: Azithromycin 250 MG TABLET PO SCH (09:00)
[2021-07-06] MEDS: PHENobarbitaL 32.4 MG TABLET PO SCH ×2 (09:00→14:09)
[2021-07-06] MEDS: Furosemide 40 MG/4 ML VIAL IVP SCH (09:01)
== END 2021-07-06 16:00 | DRG 871 ==
LOC: EMEROOARM 16:27 → 3NENU 16:27 → SUATTDRO 19:37 → 3NENU 21:55 → SUATTDRO 06-28 18:39
PROVIDERS: ADMIT Internal Medicine; ATTEND Family Medicine